=== PATIENT | female | born 1960 | race Caucasian/White ===

== ENCOUNTER 2016-06-09 10:40 | Inpatient (IN) | payer MEDICAID, OTHER ==
[~2016-06-09] VITALS: Ht 154.9 cm; Wt 80.8 kg
[2016-06-09 13:30] VITALS: BP_SYST 111; BP_SYST 164; BP_DIAS 61; BP_DIAS 95
[2016-06-09] MEDS ORDERED: IPRATROPIUM 0.5MG/ALBUTEROL 2.5MG INH SOL UD 3ML (DUONEB)(J7620) NEB PRN (14:00)
[2016-06-09] MEDS ORDERED: MOM 30ML SUSPENSION UDC PO PRN (14:00)
[2016-06-09] MEDS ORDERED: ALBUTEROL 90 MCG/ACT 8GM HFA INHALER INH PRN (14:00)
[2016-06-09] MEDS ORDERED: IPRASOL4 INH (14:36)
[2016-06-09] MEDS ORDERED: BACI500O8 TOP (14:36)
[2016-06-09] MEDS ORDERED: CART120C PO (14:36)
[2016-06-09] MEDS ORDERED: ADV250INH INH (14:36)
[2016-06-09] MEDS ORDERED: NYST100024 TOP (14:36)
[2016-06-09] MEDS ORDERED: ASPI81TA85 PO (14:36)
[2016-06-09] MEDS ORDERED: BUPR300T34 PO (14:36)
[2016-06-09] MEDS ORDERED: ALBU17IN2 INH (14:39)
[2016-06-09] MEDS ORDERED: LISI40TAB PO (14:39)
[2016-06-09] MEDS ORDERED: CRES40TA PO (14:39)
[2016-06-09] MEDS ORDERED: TRAZ150T14 PO (14:39)
[2016-06-09] MEDS ORDERED: LORA10TA2 PO (14:39)
[2016-06-09] MEDS ORDERED: OMEP20CA3 PO (14:39)
[2016-06-09] MEDS ORDERED: METO100T PO (14:39)
[2016-06-09] MEDS ORDERED: TYLE650T35 PO (14:45)
[2016-06-09] MEDS: LORATADINE 10 MG TAB PO SCH (15:34)
[2016-06-09] MEDS: ROSUVASTATIN 10 MG TAB (CRESTOR) PO SCH (15:34)
[2016-06-09] MEDS: OMEPRAZOLE 20 MG CAP PO SCH (15:34)
[2016-06-09] MEDS: BACITRACIN OINT 30GM TOP SCH ×2 (15:34→20:11)
[2016-06-09] MEDS: buPROPion **XL** TABLET 150MG (WELLBUTRIN XL) PO SCH (15:35)
[2016-06-09] MEDS: ASPIRIN 81 MG ENTERIC TAB PO SCH (15:35)
--- NOTE | 2016-06-09 17:13 | PMRNOTEPD ---
PMR Note H&P has been dictated today 06/09/16 TAL CROFT MD Jun 09, 2016 17:13
--- NOTE | 2016-06-09 18:31 | PMRHPE ---
DATE OF ADMISSION: 06/09/2016 CHIEF COMPLAINT: Rehabilitation of right occipitoparietal intracerebral hemorrhage/cerebrovascular accident, status post craniotomy and evacuation. Patient with left hemiparesis and some decreased judgment spatial concept regarding left base. HISTORY OF PRESENT ILLNESS: The patient is a 55-year-old white female, who recently had a viral pneumonia and was in the hospital at [facility] and then two days after discharge on 05/25/2016 fell and had decreasing level of consciousness and motor control. She was taken back to [facility], evaluated and found to have a near cerebral hemorrhage partially related to her anticoagulation therapy for atrial fibrillation with rapid ventricular response by treatment with aspirin and Xarelto. The patient was transferred to [facility] for neurosurgery and had craniotomy and evacuation of the clot. The surgery occurred on 05/25/2016. The patient was placed on mechanical ventilation and had a difficult course. However, the patient then started to progress and was weaned off the ventilator and transferred to the acute floor and Physical Medicine and Rehabilitation (PM R), physical therapy (PT), occupational therapy (OT), and speech therapy evaluations were performed. The patient initially was slow progress, but in the last three days has been showing fair recovery in participation and making gains and was felt to be a good rehabilitation candidate and waiting to do her rehabilitation closer to home and was accepted for admission to the acute rehabilitation unit here at [facility] for neuro rehabilitation. PAST MEDICAL HISTORY: 1. Atrial fibrillation with history of rapid ventricular response. 2. Chronic obstructive pulmonary disease (COPD) with history of emphysema. 3. Depression and history of posttraumatic stress disorder (PTSD). 4. Hypertension. 5. Pneumonia. 6. Atherosclerotic cardiovascular disease. PAST SURGICAL HISTORY: 1. Craniotomy on 05/25/2016. 2. Prior heart stent. FAMILY HISTORY: No pertinent family history has been obtained. SOCIAL HISTORY: The patient is . She lives with her and one of her adult children. She has been smoking cigarettes up until the time of the intracerebral hemorrhage but has been on nicotine patch and discontinued from her one pack a day smoking history. The patient has no history of illicit drug abuse. No travel or exposure to contagious disease. REVIEW OF SYSTEMS: CONSTITUTIONAL: Negative. CARDIOVASCULAR: Negative. GASTROINTESTINAL: Negative. RESPIRATORY: Positive for postnasal drip, coughing, and some sputum production, along with periods of shortness of breath and wheezing. NEUROLOGIC: Positive for weakness, otherwise negative. GENITOURINARY: Negative except for stress incontinence. INTEGUMENT: Negative. MEDICATIONS ON ADMISSION: - Proventil inhaler two puffs every 6 hours - DuoNeb 3 mL every 4 hours as needed for shortness of breath and wheezing - aspirin enteric coated 81 mg daily - bacitracin ointment topically three times a day to scalp incision and staple area - Wellbutrin XL 300 mg in the morning - Cardizem CD 120 mg at night - Colace 100 mg twice a day - lisinopril 40 mg at night - Claritin 10 mg by mouth daily - metoprolol tartrate 100 mg by mouth twice a day - milk of magnesia 30 mL by mouth daily as needed for constipation - nystatin powder to skin folds as needed for fungal - omeprazole 20 mg by mouth daily - Crestor 40 mg by mouth daily - salmeterol/fluticasone 250/50 one puff inhaled twice a day - Senokot one tablet at night - trazodone 300 mg at night The patient is on oxygen to keep oxygen saturation greater than or equal to 92%. She is also on seizure precautions secondary to cerebral hemorrhage and thromboembolic compression stockings (TEDS) for leg protection from deep vein thrombosis (DVT). ALLERGIES: The patient is allergic to LEVAQUIN, which causes rash and also some renal dysfunction that the patient was nonspecific about. DIETARY: The patient with dysphagia is on thickened liquids of nectar thickness and pureed foods with supervision for meals. She will be assessed for swallowing with speech therapy tomorrow. PHYSICAL EXAMINATION: The patient is a very short, obese, middle aged, white female who looks older than stated age of 55. She is alert and oriented to person, place, time and to general situation. Speech is clear, coherent and appropriate. The patient is pleasant, cooperative with positive affect and outlook. Memory is fair. VITAL SIGNS: Temperature 98.1, blood pressure 111/61, pulse 79, respirations 18, pulse oximetry 99% on 2 liters of oxygen via nasal cannula. HEENT: Normocephalic, atraumatic. Pupils are equal, round, reactive to light and accommodation. Extraocular motions are intact. Vision os conjugate. The patient appropriately tracks and responds to people around the room. Oropharynx shows some possible early thrush, but tongue is midline. There is no tremor noted. Hearing is good. NECK: Supple with some tender points. LUNGS: Clear in all spencer to auscultation. CORONARY: Shows regular rate and rhythm with normal S1, S2. 2 out of 4 radial pulses. HEAD: The patient has a C-shaped craniotomy incision that is stapled and sealed without drainage and no puffiness around it on the right occipitoparietal region. ABDOMEN: Obese. Bowel sounds present in all quadrants. No palpable tenderness or masses. BACK: Notable tender points down to the lumbosacral junction but no trigger points. EXTREMITIES: Good to full functional range of motion with some mild weakness of the left upper and lower extremities, but no clear ataxia found. Sensorium appears to be slightly decreased in the extremities of the feet and fingertips, but overall light touch and vibration are intact and deep tendon reflexes show 2/4 at the biceps, triceps, brachioradialis and knee jerks. Balance is fair to good sitting. The patient has a tendency to move to the front of the chair and lean forward and is reported by family to have already slipped out of the chair some time today. ASSESSMENT/PLAN: DIAGNOSES: 1. Rehabilitation of intracerebral hemorrhage with intraparenchymal bleeding in the right posterior parietal region. The patient seems to be making progress in the last couple of days, as it appears that vascularization and self repair have been improving after the decompression two weeks ago. The patient has participated well in limited therapy down at [facility] and is motivated to and willing to participate in acute intensive therapy with the goal of increasing her overall strength, endurance and functions to allow her to return home with her family and be modified to independent in activities of daily living and mobility. The patient will require physical and occupational therapy for activities of daily living and mobility, as well as evaluation of perception. Also, speech therapy to evaluate cognition, memory, and swallowing and advance diet as appropriate to the patient's skills. 2. Atrial fibrillation. In light of the bleed, will have to remain with just enteric coated aspirin for anticoagulation. We will use NILSON hose to avoid deep vein thrombosis (DVT), but the Cardizem, Lisinopril and Lopressor should manage blood pressure and heart rate and hopefully keep the patient out of atrial fibrillation. 3. Gastroesophageal reflux disease (GERD). The patient will continue on omeprazole. 4. Depression. We will continue bupropion and consider psychiatric evaluation if needed. 5. Hyperlipidemia. We will continue Crestor. POST ADMISSION PHYSICIAN EVALUATION: The patient with a very significant intracerebral hemorrhage exacerbated by her management medications for atrial fibrillation is now showing significant recovery and often intracerebral hemorrhages tend to have better outcomes versus thromboembolic types of strokes. The patient is consistent with her preadmission screening. I do feel that she has the overall medical stability and endurance to participate in 3 hours of therapy per day and I do anticipate discharge to home with home care services in approximately 12 days. I feel her prognosis is good. Her estimated length of stay is approximately 12 days. Time spent on chart review, history and physical and documentation is greater than 70 minutes.
[2016-06-09] MEDS: ADVAIR DISKUS 250/50 INH PWD INH SCH (19:57)
[2016-06-09 20:00] VITALS: BP 132/67
[2016-06-09] MEDS: DOCUSATE SODIUM 100 MG CAP PO SCH (20:10)
[2016-06-09] MEDS: METOPROLOL TARTRATE 100 MG TAB PO SCH (20:10)
[2016-06-09] MEDS: traZODone 100 MG TAB PO SCH (20:10)
[2016-06-09] MEDS: SENNA 8.6 MG TAB (SENOKOT) PO SCH (20:10)
[2016-06-09] MEDS: LISINOPRIL 40 MG TAB PO SCH (20:10)
[2016-06-09] MEDS: NYSTATIN 100,000 UNITS/GM TOPICAL PWD 15 GM TOP SCH (20:11)
[2016-06-10 06:00] VITALS: BP 147/68
[2016-06-10 07:01] LABS: BASO % 0.3 % (0.0-1.0); EOS # 0.2 K/mm3 (0.0-0.50); EOS % 2.2 % (0.0-3.0); LARGE UNSTAINED CELL # 0.2 K/mm3 (0.0-0.4); LARGE UNSTAINED CELL % 2.4 % (0.0-4.0); LYMPH # 1.7 K/mm3 (1.5-4.5); LYMPH % 18.7 % (24.0-44.0); MEAN CORPUSCULAR HGB CONC 30.7 g/dl (32.0-36.5); MEAN CORPUSCULAR VOLUME 84.8 fl (80.0-96.0); MONO # 0.5 K/mm3 (0.0-0.8); MONO % 5.8 % (0.0-5.0); NEUTROPHILS # 5.6 K/mm3 (1.8-7.7); NEUTROPHILS % 70.6 % (36.0-66.0); PLATELET COUNT, AUTOMATED 371 k/mm3 (150-450); RED CELL DISTRIBUTION WIDTH 14.6 % (11.5-14.5); WHITE BLOOD COUNT 7.9 K/mm3 (4.0-10.0)
[2016-06-10 07:23] LABS: ALBUMIN 2.9 GM/DL (3.2-5.2); ALBUMIN/GLOBULIN RATIO 0.88 (1.00-1.93); ALKALINE PHOSPHATASE 120 U/L (45-117); ALT/SGPT 49 U/L (12-78); ANION GAP 7 MEQ/L (8-16); AST/SGOT 25 U/L (15-37); BILIRUBIN,TOTAL 0.4 MG/DL (0.2-1.0); BLOOD UREA NITROGEN 13 MG/DL (7-18); CALCIUM LEVEL 9.2 MG/DL (8.5-10.1); CARBON DIOXIDE LEVEL 34 MEQ/L (21-32); CHLORIDE LEVEL 101 MEQ/L (98-107); CREATININE FOR GFR 0.87 MG/DL (0.55-1.02); GLOMERULAR FILTRATION RATE > 60.0 (>51); GLUCOSE, FASTING 116 MG/DL (70-105); POTASSIUM SERUM 4.3 MEQ/L (3.5-5.1); SODIUM LEVEL 142 MEQ/L (136-145); TOTAL PROTEIN 6.2 GM/DL (6.4-8.2)
[2016-06-10] MEDS: ADVAIR DISKUS 250/50 INH PWD INH SCH ×2 (08:33→20:58)
[2016-06-10] MEDS: DOCUSATE SODIUM 100 MG CAP PO SCH ×2 (09:43→21:00)
[2016-06-10] MEDS: ASPIRIN 81 MG ENTERIC TAB PO SCH (09:43)
[2016-06-10] MEDS: buPROPion **XL** TABLET 150MG (WELLBUTRIN XL) PO SCH (09:43)
[2016-06-10] MEDS: METOPROLOL TARTRATE 100 MG TAB PO SCH ×2 (09:47→21:31)
[2016-06-10] MEDS: OMEPRAZOLE 20 MG CAP PO SCH (09:47)
[2016-06-10] MEDS: LORATADINE 10 MG TAB PO SCH (09:47)
[2016-06-10] MEDS: NYSTATIN 100,000 UNITS/GM TOPICAL PWD 15 GM TOP SCH ×2 (09:48→21:33)
[2016-06-10] MEDS: BACITRACIN OINT 30GM TOP SCH ×3 (09:49→21:33)
[2016-06-10] MEDS: ROSUVASTATIN 10 MG TAB (CRESTOR) PO SCH (11:34)
--- NOTE | 2016-06-10 12:05 | IPNPDOC ---
Appeals Specialist Progress Note DATE OF SERVICE: 06/10/2016 DATE OF ADMISSION: Jun 09, 2016 at 12:50 INPATIENT REHABILITATION ADMISSION DAY: #1 SUBJECTIVE: Patient is a 55-year-old white female with right occipital parietal ICH. Patient reports no significant pain no fever chills or other malaise. She is happy that speech has evaluated her and is lifting the thicken liquids restriction. ALLERGIES: See Below MEDICATIONS: Reviewed, see below. OBJECTIVE: VITAL SIGNS: Please see below. PHYSICAL EXAMINATION: GENERAL: Short obese middle-age white female who is alert and oriented 4, but somewhat impulsive and requiring bed and chair alarm so that she does not it up on her own. She is in no acute distress and is in good spirits. HEENT: C-shaped right occipital parietal incision stapled shut from the craniotomy is showing no drainage no erythema or other signs of inflammation. Speech is clear with no dysarthria. CARDIOVASCULAR: Regular rate and rhythm with normal S1 and S2 and 2 out 4 radial pulses. LUNGS: All spencer are clear to auscultation. ABDOMEN: Obese, benign, nontender, with normal bowel sounds in all quadrants. NEUROLOGICAL: As above with continued weakness and motor control Roblin's for both lower extremities and left upper extremity. SKIN: Grossly intact with healing of the craniotomy incision going well. LABORATORY DATA: Reviewed. Please see below. MICROBIOLOGY: Please see below. IMAGING: No new. DVT prophylaxis ordered?: None due to ICH except for 81 mg aspirin and NILSON hose. ASSESSMENT AND PLAN: 1. Rehabilitation of right occipital parietal intercerebral hemorrhage: Patient continuing to show progress with improved speech and swallowing now upgrading to thin liquids. Patient participating well also in physical and occupational therapy and baseline levels function are being established. 2. COPD with emphysema: Patient remained well oxygenated in spite of often misplacing her nasal cannula. Lungs moving air well on exam. 3. Psych: Mood is good no problems with depression or PTSD at this time, patient is a willing participant in therapies and seems very motivated to improve for return to home. TIME SPENT: Chart Review, examination and documentation greater than 25 minutes. Allergies Coded Allergies: Levofloxacin (Verified Allergy, Unknown, Rash, Swelling, Renal, 06/09/16) Vital Signs Vital Signs Date Time Temp Pulse Resp B/P Pulse Ox O2 Delivery O2 Flow Rate FiO2 06/10/16 09:47 72 134/86 06/10/16 06:00 97.2 18 95 Nasal Cannula 2.0 Laboratory Data CBC/BMP Laboratory Tests 06/10/16 06:39 Calcium Level 9.2, Aspartate Amino Transf (AST/SGOT) 25, Alanine Aminotransferase (ALT/SGPT) 49, Alkaline Phosphatase 120 H, Total Bilirubin 0.4 , Total Protein 6.2 L, Albumin 2.9 L, Red Blood Count 4.16, Mean Corpuscular Volume 84.8, Mean Corpuscular Hemoglobin 26.0 L, Mean Corpuscular Hemoglobin Concent 30.7 L, Red Cell Distribution Width 14.6 H, Neutrophils (%) (Auto) 70.6 H, Lymphocytes (%) (Auto) 18.7 L, Monocytes (%) (Auto) 5.8 H, Eosinophils (%) ( Auto) 2.2, Basophils (%) (Auto) 0.3, Neutrophils # (Auto) 5.6, Lymphocytes # ( Auto) 1.7, Monocytes # (Auto) 0.5, Eosinophils # (Auto) 0.2, Basophils # (Auto) 0.0 Labs 24H Laboratory Tests 2 06/10/16 06:39: Blood Urea Nitrogen 13, Creatinine 0.87, Sodium Level 142, Potassium Level 4.3, Chloride Level 101, Carbon Dioxide Level 34H, Calcium Level 9.2, Aspartate Amino Transf (AST/SGOT) 25, Alanine Aminotransferase (ALT/SGPT) 49, Alkaline Phosphatase 120H, Total Bilirubin 0.4, Total Protein 6.2L, Albumin 2.9L, Albumin /Globulin Ratio 0.88L, Anion Gap 7L, White Blood Count 7.9, Red Blood Count 4.16 , Hemoglobin 10.8L, Hematocrit 35.3L, Mean Corpuscular Volume 84.8, Mean Corpuscular Hemoglobin 26.0L, Mean Corpuscular Hemoglobin Concent 30.7L, Red Cell Distribution Width 14.6H, Platelet Count 371, Neutrophils (%) (Auto) 70.6H , Lymphocytes (%) (Auto) 18.7L, Monocytes (%) (Auto) 5.8H, Eosinophils (%) (Auto ) 2.2, Basophils (%) (Auto) 0.3, Neutrophils # (Auto) 5.6, Lymphocytes # (Auto) 1.7, Monocytes # (Auto) 0.5, Eosinophils # (Auto) 0.2, Basophils # (Auto) 0.0, Glomerular Filtration Rate > 60.0, Large Unclassified Cells # 0.2, Large Unclassified Cells % 2.4 Current Medications Current Medications Current Medications Albuterol Sulfate (Proventil, Ventolin Hfa) 2 puff Q6HP PRN INH SHORTNESS OF BREATH; Start 06/09/16 at 14:00; Stop 07/09/16 at 13:59 Albuterol/ Ipratropium (Duoneb (Ipr 0.5mg/Alb 2.5mg)) 3 ml Q4HP PRN NEB SOB/ WHEEZING; Start 06/09/16 at 14:00; Stop 07/09/16 at 13:59 Aspirin (Ecotrin) 81 mg DAILY PO Last administered on 06/10/16 09:43; Start at 09:00; Stop 07/09/16 at 08:59 Bacitracin (Bacitracin Oint) Topically to craniot... TID TOP Last administered on 06/10/16 09:49; Start 06/09/16 at 16:00; Stop 07/09/16 at 15:59 Bupropion HCl (Wellbutrin Xl) 300 mg QAM PO Last administered on 06/10/16 09: 43; Start 06/09/16 at 09:00; Stop 07/09/16 at 08:59 Diltiazem HCl (Cardizem Cd) 120 mg QHS PO Last administered on 06/09/16 20:10 ; Start 06/09/16 at 21:00; Stop 07/09/16 at 20:59 Docusate Sodium (Colace) 100 mg BID PO Last administered on 06/10/16 09:43; Start 06/09/16 at 21:00; Stop 07/09/16 at 20:59 Home Med (Med Rec Complete!) ASDIRECTED XX ; Start 06/09/16 at 15:00; Stop at 15:00; Status DC Lisinopril (Prinivil) 40 mg QPM PO Last administered on 06/09/16 20:10; Start 06/09/16 at 21:00; Stop 07/09/16 at 20:59 Loratadine (Claritin) 10 mg DAILY PO Last administered on 06/10/16 09:47; Start 06/09/16 at 09:00; Stop 07/09/16 at 08:59 Magnesium Hydroxide (Milk Of Magnesia) 30 ml DAILYPRN PRN PO CONSTIPATION; Start 06/09/16 at 14:00; Stop 07/09/16 at 13:59 Metoprolol Tartrate (Lopressor) 100 mg BID PO Last administered on 06/10/16 09 :47; Start 06/09/16 at 21:00; Stop 07/09/16 at 20:59 Nystatin (Mycostatin Powder, Nystop) Skin folds BID TOP Last administered on 09:48; Start 06/09/16 at 21:00; Stop 07/09/16 at 20:59 Omeprazole (PriLOSEC) 20 mg DAILY PO Last administered on 06/10/16 09:47; Start 06/09/16 at 09:00; Stop 07/09/16 at 08:59 Rosuvastatin Calcium (Crestor) 40 mg DAILY PO Last administered on 06/10/16 11 :34; Start 06/09/16 at 09:00; Stop 07/09/16 at 08:59 Salmeterol Xinafoate/ Fluticasone (Advair Diskus 250/50) 1 puff BID INH Last administered on 06/10/16 08:33; Start 06/09/16 at 21:00; Stop 07/09/16 at 20:59 Senna (Senokot) 1 tab QHS PO Last administered on 06/09/16 20:10; Start at 21:00; Stop 07/09/16 at 20:59 Trazodone HCl (Desyrel) 300 mg QHS PO Last administered on 06/09/16 20:10; Start 06/09/16 at 21:00; Stop 07/09/16 at 20:59 TAL CROFT MD Jun 10, 2016 12:05
--- NOTE | 2016-06-10 13:21 | HPEPDOC ---
Medical History and Physical Date of Admission Jun 09, 2016 at 12:50 History and Physical DATE OF Consultation: 06/11/15 ATTENDING: Dr. Leggett PCP: Dr Gamez CC: Intracerebral hemorrhage s/p craniotomy and evacuation 05/25/16 [facility] HPI: 55yoF with a past medical history significant for Atrial Fibrillation previously on ASA and Xarelto. The pt had been treated for viral Pneumonia and was hospitalized at [facility] and was discharged 05/23/16. On 05/25/16 she had a fall with decreasing LOC and motor control. She was found to have a cerebral hemorrhage and was transferred to [facility] Neurosurgery service. Craniotomy and evacuation of clot completed 05/25/16. Pt with residual Left sided weakness, dysphagia. Denies any fevers, chills, weakness, fatigue, CHAIREZ, CP, SOB, cough, palpitations, abdominal pain, N/V/D or changes in bowel or bladder habits. Upon presentation to the hospital the hospitalist team was consulted to assist with medical management. PMHx: PAF. Previously on Xarelto anticoagulation. CAD. Previously on ASA. H/O Pneumonia. 06/06. COPD depression PTSD HTN TTE [facility] 06/06 Nml EF 60-65%. PSHX: Craniotomy 05/25/16 [facility] cardiac Stent SOCHX: Resides in: lives with and one of adult children Marital Status: Kids: 4 Tobacco use: previously 1ppd ETOH: denies Illicit Drugs: Denies Recent travel: denies FAMHX: Mother: PE Father: CAD/CHF Siblings: 8 Alive, CAD/HTN. Children: 4 Alive, well ROS: As noted in HPI, otherwise 11pt ROS of systems reviewed and remarkable. PE: GEN: 55yoF, appears older than stated age. Well-nourished, well developed. No acute distress. Alert and oriented x 3. Pleasant, interactive. HEENT: Normocephalic, Craniotomy incision noted/healing. Pupils are equal, round , and reactive to light. Extraocular movements are intact. No nystagmus appreciated. Sclera are nonicteric. Conjunctiva without injection. Nose midline. Nasal turbinates without bogginess. EACs both patent BL. TMs both visualized and pizano with good cone of light, no bulging or erythema. No facial asymmetry. Moist mucous membranes. Dentition fair. Pharynx pink and moist, no cobblestoning. Neck supple, trachea midline. No lymphadenopathy or thyromegaly appreciated. CHEST: Regular rate and rhythm, +S1, +S2 LUNGS: Clear to auscultation bilaterally. No wheezes, rales, or rhonchi. Breathing appears symmetric and easy. Patient is speaking in full sentences. No accessory muscle use. ABD: Round, soft, non-tender, non-distended. +Bowel sounds throughout. No rebound or guarding. No costovertebral angle tenderness. EXT: Pulses 2+ bilaterally dorsalis pedis and radial. No lower extremity edema appreciated. SKIN: [place], dry, warm. Capillary refill <2sec. No rashes. NEURO: Alert and oriented x 3. Cranial nerves III-XII are intact. weakness noted LUE/LLE. EKG: pending. A&P: 55yoF with a past medical history significant for Atrial Fibrillation previously on ASA and Xarelto. The pt had been treated for viral Pneumonia and was hospitalized at [facility] and was discharged 05/23/16. On 05/25/16 she had a fall with decreasing LOC and motor control. She was found to have a cerebral hemorrhage and was transferred to [facility] Neurosurgery service. Craniotomy and evacuation of clot completed 05/25/16 The patient is admitted to ARU to Dr. Leggett's service. 1. ICH S/P Craniotomy and evacuation of clot 05/25/16. Rehab as per ARU. PT/OT. ST. Outpt F/U with Neurology/Neurosurgery. Will confirm what instructions are from [facility]. Plan for F/U MRI as outpt 4 weeks as per D/C instructions. Continue with Keppra Seizure prophylaxis as per [facility] Neurology. 2. PAF. Xarelto on Hold. ASA 81mg resumed as per Neurosugery at [facility]. Follows with Cardiology in [place] as outpt. Will update EKG. Metoprolol/ Cardizem for rate control. HR 70s. 3. GERD. PPI 4. Depression. Wellbutrin. 5. HLD. Statin. 6. COPD. Albuterol/Advair. 7. CAD. Metoprolol/ASA. 8. HTN. Lisinopril. 9. Allergic rhinitis. Claritin. DVT prophylaxis. SCD/TEDS Vital Signs Vital Signs Date Time Temp Pulse Resp B/P Pulse Ox O2 Delivery O2 Flow Rate FiO2 06/10/16 09:47 72 134/86 06/10/16 09:30 Nasal Cannula 2.0 06/10/16 06:00 97.2 18 95 Laboratory Data Labs 24H Laboratory Tests 2 06/10/16 06:39: Blood Urea Nitrogen 13, Creatinine 0.87, Sodium Level 142, Potassium Level 4.3, Chloride Level 101, Carbon Dioxide Level 34H, Calcium Level 9.2, Aspartate Amino Transf (AST/SGOT) 25, Alanine Aminotransferase (ALT/SGPT) 49, Alkaline Phosphatase 120H, Total Bilirubin 0.4, Total Protein 6.2L, Albumin 2.9L, Albumin /Globulin Ratio 0.88L, Anion Gap 7L, White Blood Count 7.9, Red Blood Count 4.16 , Hemoglobin 10.8L, Hematocrit 35.3L, Mean Corpuscular Volume 84.8, Mean Corpuscular Hemoglobin 26.0L, Mean Corpuscular Hemoglobin Concent 30.7L, Red Cell Distribution Width 14.6H, Platelet Count 371, Neutrophils (%) (Auto) 70.6H , Lymphocytes (%) (Auto) 18.7L, Monocytes (%) (Auto) 5.8H, Eosinophils (%) (Auto ) 2.2, Basophils (%) (Auto) 0.3, Neutrophils # (Auto) 5.6, Lymphocytes # (Auto) 1.7, Monocytes # (Auto) 0.5, Eosinophils # (Auto) 0.2, Basophils # (Auto) 0.0, Glomerular Filtration Rate > 60.0, Large Unclassified Cells # 0.2, Large Unclassified Cells % 2.4 CBC/BMP Laboratory Tests 06/10/16 06:39 Calcium Level 9.2, Aspartate Amino Transf (AST/SGOT) 25, Alanine Aminotransferase (ALT/SGPT) 49, Alkaline Phosphatase 120 H, Total Bilirubin 0.4 , Total Protein 6.2 L, Albumin 2.9 L, Red Blood Count 4.16, Mean Corpuscular Volume 84.8, Mean Corpuscular Hemoglobin 26.0 L, Mean Corpuscular Hemoglobin Concent 30.7 L, Red Cell Distribution Width 14.6 H, Neutrophils (%) (Auto) 70.6 H, Lymphocytes (%) (Auto) 18.7 L, Monocytes (%) (Auto) 5.8 H, Eosinophils (%) ( Auto) 2.2, Basophils (%) (Auto) 0.3, Neutrophils # (Auto) 5.6, Lymphocytes # ( Auto) 1.7, Monocytes # (Auto) 0.5, Eosinophils # (Auto) 0.2, Basophils # (Auto) 0.0 Home Medications Scheduled Aspirin (Aspir-81) 81 Mg Tab 81 MG PO DAILY Bacitracin Base (Bacitracin) 500 Unit/Gm Oin 1 DOSE TOP TID APPLY TO WOUND ON HEAD Bupropion HCl (Bupropion HCl Xl) 300 Mg Tab 300 MG PO DAILY Diltiazem HCl (Cartia Xt) 120 Mg Cap 120 MG PO QPM Lisinopril (Lisinopril) 40 Mg Tab 40 MG PO QHS Loratadine (Loratadine) 10 Mg Tab 10 MG PO DAILY Metoprolol Tartrate (Metoprolol Tartrate) 100 Mg Tab 100 MG PO BID Nystatin (Nystatin Powder) 100,000 Unit/Gm Pow 1 DOSE TOP TID APPLY UNDER BREASTS AND GROIN FOLDS Omeprazole (Omeprazole) 20 Mg Cap 20 MG PO DAILY Rosuvastatin Calcium (Crestor) 40 Mg Tab 40 MG PO DAILY Salmeterol/Fluticasone (Advair Diskus 250-50 Mcg/Dose) 14 Puff/Inhaler Aerp 1 PUFF INH BID Trazodone HCl (Trazodone HCl) 150 Mg Tab 300 MG PO QHS Scheduled PRN Acetaminophen (Tylenol 8 Hour Arthritis) 650 Mg Tab 650 MG PO Q8H PRN PRN PAIN Albuterol Sulfate (Proventil Hfa) 167 Puff/6.7 Gm Aers 2 PUFFS INH Q6H PRN PRN SHORTNESS OF BREATH Albuterol/Ipratropium (Ipratropium [place]/Albut 0.5-2.5 (3) mg/3Ml) 1 Adriel Adriel 1 ADRIEL INH Q4H PRN PRN SHORTNESS OF BREATH Allergies Coded Allergies: Levofloxacin (Verified Allergy, Unknown, Rash, Swelling, Renal, 06/09/16) Katie Leija Jun 10, 2016 13:21
[2016-06-10] MEDS ORDERED: levETIRAcetam 250MG TABLET (KEPPRA) PO ONE (14:00)
[2016-06-10 14:10] VITALS: BP 132/82
--- NOTE | 2016-06-10 17:21 | ECGEPIP ---
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
[2016-06-10] MEDS: SENNA 8.6 MG TAB (SENOKOT) PO SCH (21:00)
[2016-06-10] MEDS: levETIRAcetam 250MG TABLET (KEPPRA) PO SCH (21:29)
[2016-06-10] MEDS: traZODone 100 MG TAB PO SCH (21:30)
[2016-06-10] MEDS: LISINOPRIL 40 MG TAB PO SCH (21:31)
[2016-06-10 22:00] VITALS: BP 148/72
[2016-06-11 06:00] VITALS: BP 127/90
[2016-06-11] MEDS: ADVAIR DISKUS 250/50 INH PWD INH SCH ×2 (07:56→20:56)
[2016-06-11] MEDS: LORATADINE 10 MG TAB PO SCH (08:58)
[2016-06-11] MEDS: OMEPRAZOLE 20 MG CAP PO SCH (08:58)
[2016-06-11] MEDS: DOCUSATE SODIUM 100 MG CAP PO SCH ×2 (08:59→21:00)
[2016-06-11] MEDS: ASPIRIN 81 MG ENTERIC TAB PO SCH (08:59)
[2016-06-11] MEDS: buPROPion **XL** TABLET 150MG (WELLBUTRIN XL) PO SCH (08:59)
[2016-06-11] MEDS: METOPROLOL TARTRATE 100 MG TAB PO SCH ×2 (08:59→21:18)
[2016-06-11] MEDS: ROSUVASTATIN 10 MG TAB (CRESTOR) PO SCH (08:59)
[2016-06-11] MEDS: NYSTATIN 100,000 UNITS/GM TOPICAL PWD 15 GM TOP SCH ×2 (09:01→21:20)
[2016-06-11] MEDS: BACITRACIN OINT 30GM TOP SCH ×3 (09:02→21:19)
[2016-06-11] MEDS: levETIRAcetam 250MG TABLET (KEPPRA) PO SCH ×2 (09:42→21:18)
[2016-06-11 14:00] VITALS: BP 130/84
[2016-06-11 20:00] VITALS: BP 144/55
[2016-06-11] MEDS: SENNA 8.6 MG TAB (SENOKOT) PO SCH (21:00)
[2016-06-11] MEDS: LISINOPRIL 40 MG TAB PO SCH (21:18)
[2016-06-11] MEDS: traZODone 100 MG TAB PO SCH (21:23)
[2016-06-12 06:00] VITALS: BP 140/77
[2016-06-12] MEDS: ADVAIR DISKUS 250/50 INH PWD INH SCH ×2 (07:46→19:55)
[2016-06-12] MEDS: buPROPion **XL** TABLET 150MG (WELLBUTRIN XL) PO SCH (09:13)
[2016-06-12] MEDS: OMEPRAZOLE 20 MG CAP PO SCH (09:13)
[2016-06-12] MEDS: ASPIRIN 81 MG ENTERIC TAB PO SCH (09:13)
[2016-06-12] MEDS: METOPROLOL TARTRATE 100 MG TAB PO SCH ×2 (09:13→21:43)
[2016-06-12] MEDS: ROSUVASTATIN 10 MG TAB (CRESTOR) PO SCH (09:14)
[2016-06-12] MEDS: LORATADINE 10 MG TAB PO SCH (09:14)
[2016-06-12] MEDS: levETIRAcetam 250MG TABLET (KEPPRA) PO SCH ×2 (09:14→21:42)
[2016-06-12] MEDS: DOCUSATE SODIUM 100 MG CAP PO SCH ×2 (09:14→21:00)
[2016-06-12] MEDS: NYSTATIN 100,000 UNITS/GM TOPICAL PWD 15 GM TOP SCH ×2 (09:15→21:44)
[2016-06-12] MEDS: BACITRACIN OINT 30GM TOP SCH ×3 (09:15→21:44)
[2016-06-12 14:00] VITALS: BP 106/71
[2016-06-12 20:00] VITALS: BP 118/55
[2016-06-12] MEDS: SENNA 8.6 MG TAB (SENOKOT) PO SCH (21:00)
[2016-06-12] MEDS: LISINOPRIL 40 MG TAB PO SCH (21:43)
[2016-06-12] MEDS: traZODone 100 MG TAB PO SCH (21:43)
[2016-06-13 06:00] VITALS: BP 123/60
[2016-06-13] MEDS: ADVAIR DISKUS 250/50 INH PWD INH SCH ×2 (08:08→21:41)
[2016-06-13] MEDS: LORATADINE 10 MG TAB PO SCH (08:52)
[2016-06-13] MEDS: DOCUSATE SODIUM 100 MG CAP PO SCH ×2 (08:52→21:00)
[2016-06-13] MEDS: ROSUVASTATIN 10 MG TAB (CRESTOR) PO SCH (08:53)
[2016-06-13] MEDS: METOPROLOL TARTRATE 100 MG TAB PO SCH ×2 (08:54→20:07)
[2016-06-13] MEDS: ASPIRIN 81 MG ENTERIC TAB PO SCH (08:54)
[2016-06-13] MEDS: levETIRAcetam 250MG TABLET (KEPPRA) PO SCH ×2 (08:54→20:07)
[2016-06-13] MEDS: OMEPRAZOLE 20 MG CAP PO SCH (08:55)
[2016-06-13] MEDS: buPROPion **XL** TABLET 150MG (WELLBUTRIN XL) PO SCH (08:55)
[2016-06-13] MEDS: NYSTATIN 100,000 UNITS/GM TOPICAL PWD 15 GM TOP SCH ×2 (08:56→20:08)
[2016-06-13] MEDS: BACITRACIN OINT 30GM TOP SCH ×3 (08:56→20:08)
--- NOTE | 2016-06-13 10:20 | IPNPDOC ---
Subjective Date Seen The patient was seen on 06/13/16. Subjective Chief Complaint/HPI The patient is a 55-year-old female admitted with a reason for visit of Right Intraparenchymal Hemorrhage. Events since last encounter no new complaints. Objective Physical Examination General Exam: Positive: Alert Eye Exam: Positive: PERRLA Neck Exam: Positive: Supple Chest Exam: Positive: Clear to auscultation, Normal air movement Heart Exam: Positive: Normal S1, Normal S2, Rate Normal, Regular Rhythm, Negative: Murmurs, Rubs Skin Exam: Positive: Nl turgor and temperature Assessment /Plan Problems (1) CVA (cerebrovascular accident due to intracerebral hemorrhage) Status: Acute Problem Text: * Management as per ARU * PT/OT/ST * Patient remains on Keppra 750 mg by mouth twice a day seizure prophylaxis as per [facility] neurology. * Follow-up with neurology and neurosurgery following discharge -[facility]. Plan for follow-up MRI brain in 4 weeks. * Bowel care (2) COPD (chronic obstructive pulmonary disease) Status: Chronic Response to Treatment: Stable Problem Text: * Advair/albuterol as needed (3) Depression Status: Chronic Response to Treatment: Stable Problem Text: * Continue Wellbutrin (4) HTN (hypertension) Status: Chronic Response to Treatment: Stable Problem Text: * Continue lisinopril (5) GERD (gastroesophageal reflux disease) Status: Chronic Response to Treatment: Stable Problem Text: * PPI (6) Hyperlipemia Status: Chronic Response to Treatment: Stable Problem Text: * Continue statin (7) PAF (paroxysmal atrial fibrillation) Status: Chronic Response to Treatment: Stable Problem Text: * Xarelto on hold * Aspirin 81 mg restarted as per neurosurgery [facility] * Metoprolol/Cardizem for rate control * EKG 06/10 sinus rhythm * Monitor (8) CAD (coronary artery disease) Status: Chronic Response to Treatment: Stable Problem Text: * Metoprolol * Aspirin 81 mg (9) Allergic rhinitis Status: Chronic Response to Treatment: Stable Problem Text: * Continue Claritin Plan/VTE VTE Prophylaxis Ordered?: Yes (SCD/TEDS) VTE Exclusion Pharmacological: Hemorrhage (ICH) Disposition As per ARU VS, I&O, 24H, Fishbone Vital Signs/I&O Vital Signs Date Time Temp Pulse Resp B/P Pulse Ox O2 Delivery O2 Flow Rate FiO2 06/13/16 08:54 61 110/46 06/13/16 08:00 Room Air 06/13/16 06:00 99.0 18 96 06/12/16 21:00 2.0 I&O- Last 24 Hours up to 6 AM 06/13/16 06:00 Intake Total 900 ml Output Total 200 ml Balance 700 ml Katie Leija Jun 13, 2016 10:20
--- NOTE | 2016-06-13 10:24 | IPNPDOC ---
Operational Trainer Progress Note DATE OF SERVICE: 06/13/2016 DATE OF ADMISSION: Jun 09, 2016 at 12:50 INPATIENT REHABILITATION ADMISSION DAY: #4 SUBJECTIVE: Patient is a 55-year-old white female with with right occipital parietal bleed status post decompression with craniotomy. Patient reports feeling good and not having problems with fever, chills, pain or sleep. ALLERGIES: See Below MEDICATIONS: Reviewed, see below. OBJECTIVE: VITAL SIGNS: Please see below. PHYSICAL EXAMINATION: GENERAL: Short obese middle-age white female in no acute distress with healing craniotomy C shaped incision of the right occipital parietal region that is without drainage or inflammation or increased tenderness. [place] are holding well. HEENT: Healing craniotomy scar. Good facial symmetry without pain notable dysarthria. CARDIOVASCULAR: Regular rate and rhythm with normal S1 and S2 without S3-S4 murmurs or rubs. 2 out 4 bilateral radial pulses. LUNGS: All spencer are clear to auscultation with good air movement. ABDOMEN: Obese, nontender with normal bowel sounds in all quadrants. NEUROLOGICAL: Patient is alert and well oriented, speech is clear coherent and appropriate affect is less and cooperative. Patient showing less impulsivity during my exam today than on the prior exams. SKIN: As noted above healing craniotomy incision otherwise intact skin. LABORATORY DATA: Reviewed. Please see below. MICROBIOLOGY: Please see below. IMAGING: No new. DVT prophylaxis ordered?: Continue hold anticoagulants other than aspirin due to intercerebral hemorrhage. Will continue with NILSON mock for now. ASSESSMENT AND PLAN: 1. Rehabilitation of right occipital parietal intercerebral hemorrhage: Patient still with some left neglect and weakness but isn't progressing in therapies we' ll discuss further at team conference today. 2. Craniotomy: Healing well no changes in care planed. 3. Hypertension: Patient doing fairly well currently 123/60. 4. Depression: This seems to be under good control with patient's mood being stable and on the positive side and working well with therapy and nursing. TIME SPENT: Chart Review, examination and documentation greater than 25 minutes. Allergies Coded Allergies: Levofloxacin (Verified Allergy, Unknown, Rash, Swelling, Renal, 06/09/16) Vital Signs Vital Signs Date Time Temp Pulse Resp B/P Pulse Ox O2 Delivery O2 Flow Rate FiO2 06/13/16 08:54 61 110/46 06/13/16 08:00 Room Air 06/13/16 06:00 99.0 18 96 06/12/16 21:00 2.0 Current Medications Current Medications Current Medications Albuterol Sulfate (Proventil, Ventolin Hfa) 2 puff Q6HP PRN INH SHORTNESS OF BREATH; Start 06/09/16 at 14:00; Stop 07/09/16 at 13:59 Albuterol/ Ipratropium (Duoneb (Ipr 0.5mg/Alb 2.5mg)) 3 ml Q4HP PRN NEB SOB/ WHEEZING; Start 06/09/16 at 14:00; Stop 07/09/16 at 13:59 Aspirin (Ecotrin) 81 mg DAILY PO Last administered on 06/13/16 08:54; Start at 09:00; Stop 07/09/16 at 08:59 Bacitracin (Bacitracin Oint) Topically to craniot... TID TOP Last administered on 06/13/16 08:56; Start 06/09/16 at 16:00; Stop 07/09/16 at 15:59 Bupropion HCl (Wellbutrin Xl) 300 mg QAM PO Last administered on 06/13/16 08: 55; Start 06/09/16 at 09:00; Stop 07/09/16 at 08:59 Diltiazem HCl (Cardizem Cd) 120 mg QHS PO Last administered on 06/12/16 21:42 ; Start 06/09/16 at 21:00; Stop 07/09/16 at 20:59 Docusate Sodium (Colace) 100 mg BID PO Last administered on 06/11/16 08:59; Start 06/09/16 at 21:00; Stop 07/09/16 at 20:59 Home Med (Med Rec Complete!) ASDIRECTED XX ; Start 06/09/16 at 15:00; Stop at 15:00; Status DC Levetiracetam (Keppra) 750 mg BID PO Last administered on 06/13/16 08:54; Start 06/10/16 at 21:00; Stop 07/10/16 at 20:59 Lisinopril (Prinivil) 40 mg QPM PO Last administered on 06/12/16 21:43; Start 06/09/16 at 21:00; Stop 07/09/16 at 20:59 Loratadine (Claritin) 10 mg DAILY PO Last administered on 06/13/16 08:52; Start 06/09/16 at 09:00; Stop 07/09/16 at 08:59 Magnesium Hydroxide (Milk Of Magnesia) 30 ml DAILYPRN PRN PO CONSTIPATION; Start 06/09/16 at 14:00; Stop 07/09/16 at 13:59 Metoprolol Tartrate (Lopressor) 100 mg BID PO Last administered on 06/12/16 21 :43; Start 06/09/16 at 21:00; Stop 07/09/16 at 20:59 Nystatin (Mycostatin Powder, Nystop) Skin folds BID TOP Last administered on 08:56; Start 06/09/16 at 21:00; Stop 07/09/16 at 20:59 Omeprazole (PriLOSEC) 20 mg DAILY PO Last administered on 06/13/16 08:55; Start 06/09/16 at 09:00; Stop 07/09/16 at 08:59 Rosuvastatin Calcium (Crestor) 40 mg DAILY PO Last administered on 06/13/16 08 :53; Start 06/09/16 at 09:00; Stop 07/09/16 at 08:59 Salmeterol Xinafoate/ Fluticasone (Advair Diskus 250/50) 1 puff BID INH Last administered on 06/13/16 08:08; Start 06/09/16 at 21:00; Stop 07/09/16 at 20:59 Senna (Senokot) 1 tab QHS PO Last administered on 06/10/16 21:00; Start at 21:00; Stop 07/09/16 at 20:59 Trazodone HCl (Desyrel) 300 mg QHS PO Last administered on 06/12/16 21:43; Start 06/09/16 at 21:00; Stop 07/09/16 at 20:59 TAL CROFT MD Jun 13, 2016 10:24
[2016-06-13 14:21] VITALS: BP 147/84
[2016-06-13 20:00] VITALS: BP 127/63
[2016-06-13] MEDS: LISINOPRIL 40 MG TAB PO SCH (20:07)
[2016-06-13] MEDS: traZODone 100 MG TAB PO SCH (20:07)
[2016-06-13] MEDS: SENNA 8.6 MG TAB (SENOKOT) PO SCH (21:00)
[2016-06-14 06:00] VITALS: BP 122/61
[2016-06-14] MEDS: ACETAMINOPHEN TAB 650MG DOSE (2X325MG) PO PRN ×2 (06:15→20:17)
[2016-06-14] MEDS: ADVAIR DISKUS 250/50 INH PWD INH SCH ×2 (07:47→19:54)
[2016-06-14] MEDS: DOCUSATE SODIUM 100 MG CAP PO SCH ×2 (09:00→21:00)
[2016-06-14] MEDS: METOPROLOL TARTRATE 100 MG TAB PO SCH ×2 (09:00→20:16)
--- NOTE | 2016-06-14 09:37 | IPNPDOC ---
Spar Finisher Progress Note DATE OF SERVICE: 06/14/2016 DATE OF ADMISSION: Jun 09, 2016 at 12:50 INPATIENT REHABILITATION ADMISSION DAY: #5 SUBJECTIVE: Patient is a 55-year-old white female with right occipital parietal ICH. Patient noted some back pain last night that responded to Tylenol 650 mg and is not having problems with pain, fever, chills or general other complaints. ALLERGIES: See Below MEDICATIONS: Reviewed, see below. OBJECTIVE: VITAL SIGNS: Please see below. PHYSICAL EXAMINATION: GENERAL: Short obese middle-age white female who is alert and well oriented. Speech is clear coherent and appropriate affect is pleasant and cooperative. Patient is in no acute distress sitting up in physical therapy having been doing leg exercises. She is showing fairly good sitting balance as she does this. HEENT: Incision continues to look good without inflammation or drainage. CARDIOVASCULAR: Regular rate and rhythm with normal S1 and S2. 2 out 4 bilateral radial pulses. LUNGS: All spencer clear to auscultation with good air movement. ABDOMEN: Obese, nontender, with normal bowel sounds in all quadrants. NEUROLOGICAL: As above showing progress in strength and balance. SKIN: Scalp incision healing well. LABORATORY DATA: Reviewed. Please see below. MICROBIOLOGY: Please see below. IMAGING: No new imaging. DVT prophylaxis ordered?: Patient using NILSON hose as unable to anticoagulate due to ICH. ASSESSMENT AND PLAN: 1. Rehabilitation of right occipital parietal ICH: Patient in good spirits and motivated and working hard with PT and OT. 2. Type 2 diabetes mellitus: Fairly good control noted. 3. Hypertension: Patient writing normal level blood pressures on current regimen. TIME SPENT: Chart Review, examination and documentation greater than 25 minutes. Allergies Coded Allergies: Levofloxacin (Verified Allergy, Unknown, Rash, Swelling, Renal, 06/09/16) Vital Signs Vital Signs Date Time Temp Pulse Resp B/P Pulse Ox O2 Delivery O2 Flow Rate FiO2 06/14/16 06:00 97.4 70 18 122/61 97 Nasal Cannula 2.0 Current Medications Current Medications Current Medications Acetaminophen (Tylenol Tab) 650 mg Q6HP PRN PO PAIN / FEVER Last administered on 06/14/16t 06:15; Start 06/14/16 at 06:15; Stop 07/14/16 at 06:14 Albuterol Sulfate (Proventil, Ventolin Hfa) 2 puff Q6HP PRN INH SHORTNESS OF BREATH; Start 06/09/16 at 14:00; Stop 07/09/16 at 13:59 Albuterol/ Ipratropium (Duoneb (Ipr 0.5mg/Alb 2.5mg)) 3 ml Q4HP PRN NEB SOB/ WHEEZING; Start 06/09/16 at 14:00; Stop 07/09/16 at 13:59 Aspirin (Ecotrin) 81 mg DAILY PO Last administered on 06/13/16 08:54; Start at 09:00; Stop 07/09/16 at 08:59 Bacitracin (Bacitracin Oint) Topically to craniot... TID TOP Last administered on 06/13/16 20:08; Start 06/09/16 at 16:00; Stop 07/09/16 at 15:59 Bupropion HCl (Wellbutrin Xl) 300 mg QAM PO Last administered on 06/13/16 08: 55; Start 06/09/16 at 09:00; Stop 07/09/16 at 08:59 Diltiazem HCl (Cardizem Cd) 120 mg QHS PO Last administered on 06/13/16 20:06 ; Start 06/09/16 at 21:00; Stop 07/09/16 at 20:59 Docusate Sodium (Colace) 100 mg BID PO Last administered on 06/11/16 08:59; Start 06/09/16 at 21:00; Stop 07/09/16 at 20:59 Home Med (Med Rec Complete!) ASDIRECTED XX ; Start 06/09/16 at 15:00; Stop at 15:00; Status DC Levetiracetam (Keppra) 750 mg BID PO Last administered on 06/13/16 20:07; Start 06/10/16 at 21:00; Stop 07/10/16 at 20:59 Lisinopril (Prinivil) 40 mg QPM PO Last administered on 06/13/16 20:07; Start 06/09/16 at 21:00; Stop 07/09/16 at 20:59 Loratadine (Claritin) 10 mg DAILY PO Last administered on 06/13/16 08:52; Start 06/09/16 at 09:00; Stop 07/09/16 at 08:59 Magnesium Hydroxide (Milk Of Magnesia) 30 ml DAILYPRN PRN PO CONSTIPATION; Start 06/09/16 at 14:00; Stop 07/09/16 at 13:59 Metoprolol Tartrate (Lopressor) 100 mg BID PO Last administered on 06/13/16 20 :07; Start 06/09/16 at 21:00; Stop 07/09/16 at 20:59 Nystatin (Mycostatin Powder, Nystop) Skin folds BID TOP Last administered on 20:08; Start 06/09/16 at 21:00; Stop 07/09/16 at 20:59 Omeprazole (PriLOSEC) 20 mg DAILY PO Last administered on 06/13/16 08:55; Start 06/09/16 at 09:00; Stop 07/09/16 at 08:59 Rosuvastatin Calcium (Crestor) 40 mg DAILY PO Last administered on 06/13/16 08 :53; Start 06/09/16 at 09:00; Stop 07/09/16 at 08:59 Salmeterol Xinafoate/ Fluticasone (Advair Diskus 250/50) 1 puff BID INH Last administered on 06/14/16 07:47; Start 06/09/16 at 21:00; Stop 07/09/16 at 20:59 Senna (Senokot) 1 tab QHS PO Last administered on 06/10/16 21:00; Start at 21:00; Stop 07/09/16 at 20:59 Trazodone HCl (Desyrel) 300 mg QHS PO Last administered on 06/13/16 20:07; Start 06/09/16 at 21:00; Stop 07/09/16 at 20:59 TAL CROFT MD Jun 14, 2016 09:37
[2016-06-14] MEDS: OMEPRAZOLE 20 MG CAP PO SCH (10:13)
[2016-06-14] MEDS: ROSUVASTATIN 10 MG TAB (CRESTOR) PO SCH (10:14)
[2016-06-14] MEDS: levETIRAcetam 250MG TABLET (KEPPRA) PO SCH ×2 (10:15→20:16)
[2016-06-14] MEDS: LORATADINE 10 MG TAB PO SCH (10:16)
[2016-06-14] MEDS: ASPIRIN 81 MG ENTERIC TAB PO SCH (10:16)
[2016-06-14] MEDS: buPROPion **XL** TABLET 150MG (WELLBUTRIN XL) PO SCH (10:16)
[2016-06-14] MEDS: BACITRACIN OINT 30GM TOP SCH ×3 (10:18→20:18)
[2016-06-14] MEDS: NYSTATIN 100,000 UNITS/GM TOPICAL PWD 15 GM TOP SCH ×2 (10:18→20:17)
--- NOTE | 2016-06-14 11:28 | IPNPDOC ---
Subjective Date Seen The patient was seen on 06/14/16. Subjective Chief Complaint/HPI The patient is a 55-year-old female admitted with a reason for visit of Right Intraparenchymal Hemorrhage. Events since last encounter Requested to re evaluate BP. This AM 108 systolic, Some doses of Metoprolol held as per parameter. Pt states occas dizzy if quick position change. Pulmonary: Denies: Cough, Dyspnea Cardiovascular: Denies: Chest Pain, Lt Headedness, Orthopnea, Palpitations, Paroxysmal Noc. Dyspnea Gastrointestinal: Denies: Abdominal Pain, Constipation, Diarrhea, Nausea, Vomiting Objective Physical Examination General Exam: Positive: Alert Eye Exam: Positive: PERRLA Neck Exam: Positive: Supple Chest Exam: Positive: Clear to auscultation, Normal air movement Heart Exam: Positive: Normal S1, Normal S2, Rate Normal, Regular Rhythm, Negative: Murmurs, Rubs Skin Exam: Positive: Nl turgor and temperature Assessment /Plan Problems (1) CVA (cerebrovascular accident due to intracerebral hemorrhage) Status: Acute Problem Text: * Management as per ARU * PT/OT/ST * Patient remains on Keppra 750 mg by mouth twice a day seizure prophylaxis as per [facility] neurology. * Follow-up with neurology and neurosurgery following discharge -[facility]. Plan for follow-up MRI brain in 4 weeks. * Bowel care (2) COPD (chronic obstructive pulmonary disease) Status: Chronic Response to Treatment: Stable Problem Text: * Advair/albuterol as needed (3) Depression Status: Chronic Response to Treatment: Stable Problem Text: * Continue Wellbutrin (4) HTN (hypertension) Status: Chronic Response to Treatment: Stable Problem Text: * Will reduce lisinopril to 30mg HS with hold parameter * Update labs in AM. (5) GERD (gastroesophageal reflux disease) Status: Chronic Response to Treatment: Stable Problem Text: * PPI (6) Hyperlipemia Status: Chronic Response to Treatment: Stable Problem Text: * Continue statin (7) PAF (paroxysmal atrial fibrillation) Status: Chronic Response to Treatment: Stable Problem Text: * Xarelto on hold * Aspirin 81 mg restarted as per neurosurgery [facility] * Metoprolol/Cardizem for rate control * EKG 06/10 sinus rhythm * Monitor (8) CAD (coronary artery disease) Status: Chronic Response to Treatment: Stable Problem Text: * Metoprolol * Aspirin 81 mg (9) Allergic rhinitis Status: Chronic Response to Treatment: Stable Problem Text: * Continue Claritin Plan/VTE VTE Prophylaxis Ordered?: Yes (SCD/TEDS) VTE Exclusion Pharmacological: Hemorrhage (ICH) VS, I&O, 24H, Fishbone Vital Signs/I&O Vital Signs Date Time Temp Pulse Resp B/P Pulse Ox O2 Delivery O2 Flow Rate FiO2 06/14/16 10:00 Room Air 06/14/16 09:00 79 108/64 06/14/16 06:00 97.4 18 97 2.0 I&O- Last 24 Hours up to 6 AM 06/14/16 05:59 Intake Total 1200 ml Output Total 700 ml Balance 500 ml Katie Leija Jun 14, 2016 11:28
[2016-06-14 14:00] VITALS: BP 126/73
[2016-06-14 20:00] VITALS: BP 148/82
[2016-06-14] MEDS: traZODone 100 MG TAB PO SCH (20:17)
[2016-06-14] MEDS: LISINOPRIL 10 MG TAB PO SCH (20:17)
[2016-06-14] MEDS: SENNA 8.6 MG TAB (SENOKOT) PO SCH (21:00)
[2016-06-15] MEDS: ACETAMINOPHEN TAB 650MG DOSE (2X325MG) PO PRN (03:10)
[2016-06-15 06:00] VITALS: BP 127/61
[2016-06-15 07:09] LABS: MEAN CORPUSCULAR HEMOGLOBIN 26.2 pg (27.0-33.0); MEAN CORPUSCULAR HGB CONC 30.2 g/dl (32.0-36.5); MEAN CORPUSCULAR VOLUME 86.7 fl (80.0-96.0); RED CELL DISTRIBUTION WIDTH 14.3 % (11.5-14.5); WHITE BLOOD COUNT 6.4 K/mm3 (4.0-10.0)
[2016-06-15 07:31] LABS: ALBUMIN 2.9 GM/DL (3.2-5.2); ALBUMIN/GLOBULIN RATIO 0.85 (1.00-1.93); ALKALINE PHOSPHATASE 99 U/L (45-117); ALT/SGPT 28 U/L (12-78); ANION GAP 4 MEQ/L (8-16); AST/SGOT 15 U/L (15-37); BILIRUBIN,TOTAL 0.3 MG/DL (0.2-1.0); BLOOD UREA NITROGEN 8 MG/DL (7-18); CALCIUM LEVEL 9.1 MG/DL (8.5-10.1); CARBON DIOXIDE LEVEL 32 MEQ/L (21-32); CHLORIDE LEVEL 108 MEQ/L (98-107); CREATININE FOR GFR 0.86 MG/DL (0.55-1.02); GLOMERULAR FILTRATION RATE > 60.0 (>51); GLUCOSE, FASTING 99 MG/DL (70-105); POTASSIUM SERUM 4.5 MEQ/L (3.5-5.1); SODIUM LEVEL 144 MEQ/L (136-145); TOTAL PROTEIN 6.3 GM/DL (6.4-8.2)
[2016-06-15] MEDS: ADVAIR DISKUS 250/50 INH PWD INH SCH ×2 (08:17→21:42)
[2016-06-15] MEDS: METOPROLOL TARTRATE 100 MG TAB PO SCH ×2 (09:14→21:05)
[2016-06-15] MEDS: OMEPRAZOLE 20 MG CAP PO SCH (09:14)
[2016-06-15] MEDS: DOCUSATE SODIUM 100 MG CAP PO SCH ×2 (09:14→21:06)
[2016-06-15] MEDS: levETIRAcetam 250MG TABLET (KEPPRA) PO SCH ×2 (09:14→21:03)
[2016-06-15] MEDS: LORATADINE 10 MG TAB PO SCH (09:14)
[2016-06-15] MEDS: ASPIRIN 81 MG ENTERIC TAB PO SCH (09:14)
[2016-06-15] MEDS: ROSUVASTATIN 10 MG TAB (CRESTOR) PO SCH (09:15)
[2016-06-15] MEDS: buPROPion **XL** TABLET 150MG (WELLBUTRIN XL) PO SCH (09:15)
[2016-06-15] MEDS: BACITRACIN OINT 30GM TOP SCH ×3 (09:16→21:07)
[2016-06-15] MEDS: NYSTATIN 100,000 UNITS/GM TOPICAL PWD 15 GM TOP SCH ×2 (09:16→21:07)
--- NOTE | 2016-06-15 11:12 | IPNPDOC ---
Subjective Date Seen The patient was seen on 06/15/16. Subjective Chief Complaint/HPI The patient is a 55-year-old female admitted with a reason for visit of Right Intraparenchymal Hemorrhage. Events since last encounter Patient states she is feeling well. She is out of bed in the wheelchair and working with therapy. She has no concerns. ENT: Denies: Head Aches, Dysphagia Pulmonary: Denies: Dyspnea, Cough Cardiovascular: Denies: Chest Pain, Palpitations, Orthopnea, Paroxysmal Noc. Dyspnea, Lt Headedness Gastrointestinal: Denies: Nausea, Vomiting, Abdominal Pain, Diarrhea, Constipation Genitourinary: Denies: Dysuria, Frequency, Incontinence, Retention Objective Physical Examination General Exam: Positive: Alert Eye Exam: Positive: PERRLA Neck Exam: Positive: Supple Chest Exam: Positive: Clear to auscultation, Normal air movement Heart Exam: Positive: Rate Normal, Regular Rhythm, Normal S1, Normal S2, Negative: Murmurs, Rubs Skin Exam: Positive: Nl turgor and temperature Assessment /Plan Problems (1) CVA (cerebrovascular accident due to intracerebral hemorrhage) Status: Acute Problem Text: * Management as per ARU * PT/OT/ST * Patient remains on Keppra 750 mg by mouth twice a day seizure prophylaxis as per [facility] neurology. * Follow-up with neurology and neurosurgery following discharge -[facility]. Plan for follow-up MRI brain in 4 weeks. * Bowel care (2) COPD (chronic obstructive pulmonary disease) Status: Chronic Response to Treatment: Stable Problem Text: * Advair/albuterol as needed (3) Depression Status: Chronic Response to Treatment: Stable Problem Text: * Continue Wellbutrin (4) HTN (hypertension) Status: Chronic Response to Treatment: Stable Problem Text: * Lisinopril reduced to 30mg HS with hold parameter 06/14 * BP 127/61 this a.m. * Monitor (5) GERD (gastroesophageal reflux disease) Status: Chronic Response to Treatment: Stable Problem Text: * PPI (6) Hyperlipemia Status: Chronic Response to Treatment: Stable Problem Text: * Continue statin (7) PAF (paroxysmal atrial fibrillation) Status: Chronic Response to Treatment: Stable Problem Text: * Xarelto on hold * Aspirin 81 mg restarted as per neurosurgery [facility] * Metoprolol/Cardizem for rate control * EKG 06/10 sinus rhythm * Monitor (8) CAD (coronary artery disease) Status: Chronic Response to Treatment: Stable Problem Text: * Metoprolol * Aspirin 81 mg (9) Allergic rhinitis Status: Chronic Response to Treatment: Stable Problem Text: * Continue Claritin (10) Anemia Status: Chronic Problem Text: * Hemoglobin stable * Add iron studies, B12, folate to labs. Plan/VTE VTE Prophylaxis Ordered?: Yes (SCD/TEDS) VTE Exclusion Pharmacological: Hemorrhage (ICH) VS, I&O, 24H, Fishbone Vital Signs/I&O Vital Signs Date Time Temp Pulse Resp B/P (MAP) Pulse Ox O2 Delivery O2 Flow Rate FiO2 06/15/16 09:14 60 127/61 06/15/16 09:00 Room Air 06/15/16 06:00 98.3 18 100 06/14/16 22:05 2.0 I&O- Last 24 Hours up to 6 AM 06/15/16 05:59 Intake Total 1140 ml Output Total 0 ml Balance 1140 ml Laboratory Data 24H LABS Laboratory Tests 2 06/15/16 06:56: Anion Gap 4L, Glomerular Filtration Rate > 60.0, Blood Urea Nitrogen 8, Creatinine 0.86, Sodium Level 144, Potassium Level 4.5, Chloride Level 108H, Carbon Dioxide Level 32, Calcium Level 9.1, Aspartate Amino Transf (AST/SGOT) 15 , Alanine Aminotransferase (ALT/SGPT) 28, Alkaline Phosphatase 99, Total Bilirubin 0.3, Total Protein 6.3L, Albumin 2.9L, Albumin/Globulin Ratio 0.85L CBC/BMP Laboratory Tests 06/15/16 06:56 Red Blood Count 4.05, Mean Corpuscular Volume 86.7, Mean Corpuscular Hemoglobin 26.2 L, Mean Corpuscular Hemoglobin Concent 30.2 L, Red Cell Distribution Width 14.3, Calcium Level 9.1, Aspartate Amino Transf (AST/SGOT) 15, Alanine Aminotransferase (ALT/SGPT) 28, Alkaline Phosphatase 99, Total Bilirubin 0.3, Total Protein 6.3 L, Albumin 2.9 L Katie Leija Jun 15, 2016 11:12
[2016-06-15 11:44] LABS: FERRITIN 40 NG/ML (8-252); PERCENT SATURATION 6.4 % (13.2-37.4); TOTAL IRON BINDING CAPACITY 342 UG/DL (250-450)
--- NOTE | 2016-06-15 12:13 | IPNPDOC ---
Horticulture/Floriculture Teacher Progress Note DATE OF SERVICE: 06/15/2016 DATE OF ADMISSION: Jun 09, 2016 at 12:50 INPATIENT REHABILITATION ADMISSION DAY: #6 SUBJECTIVE: Patient is a 55-year-old white female with occipital parietal ICH. Patient in no acute distress denies any significant pain, fever, chills or other acute problems. ALLERGIES: See Below MEDICATIONS: Reviewed, see below. OBJECTIVE: VITAL SIGNS: Please see below. PHYSICAL EXAMINATION: GENERAL: Short overweight middle-age white female with right occipital parietal craniotomy site for drainage of ICH. The incision line has healed I have removed the eugene today with no wound problems or drainage as the incision line has healed together well. HEENT: Normocephalic/atraumatic with healed craniotomy incision. CARDIOVASCULAR: Regular rate and rhythm with normal S1-S2 without S3-S4 murmurs or rubs. Regular 2 out 4 bilateral radial pulses. LUNGS: All spencer are clear auscultation. ABDOMEN: Obese, nontender, with normal bowel sounds in all quadrants. NEUROLOGICAL: Patient is alert and well oriented with positive attitude and overall good spirits and cooperating well with therapy. Patient with some impulsivity still and some diminution of balance but improving. SKIN: Craniotomy incision intact otherwise no problems found. LABORATORY DATA: Reviewed. Please see below. MICROBIOLOGY: Please see below. IMAGING: No new imaging today. DVT prophylaxis ordered?: No change. ASSESSMENT AND PLAN: 1. Rehabilitation of right occipital parietal intracerebral hemorrhage: Patient participating well with therapy showing increasing endurance and activity. She has some impulsivity but overall good energy effort and initiation. Mobility and transfers are progressing well. 2. Atrial fibrillation: We are unable to anticoagulate her due to the recent intercerebral hemorrhage, but fortunately patient has been staying and sinus rhythm and aspirin therapy appears to be appropriate at this time. 3. GERD: Patient not have a problem on current regimen continue with Omeprazole. TIME SPENT: Chart Review, examination and documentation greater than 25 minutes. Allergies Coded Allergies: Levofloxacin (Verified Allergy, Unknown, Rash, Swelling, Renal, 06/09/16) Vital Signs Vital Signs Date Time Temp Pulse Resp B/P (MAP) Pulse Ox O2 Delivery O2 Flow Rate FiO2 06/15/16 09:14 60 127/61 06/15/16 09:00 Room Air 06/15/16 06:00 98.3 18 100 06/14/16 22:05 2.0 Laboratory Data CBC/BMP Laboratory Tests 06/15/16 06:56 Red Blood Count 4.05, Mean Corpuscular Volume 86.7, Mean Corpuscular Hemoglobin 26.2 L, Mean Corpuscular Hemoglobin Concent 30.2 L, Red Cell Distribution Width 14.3, Calcium Level 9.1, Aspartate Amino Transf (AST/SGOT) 15, Alanine Aminotransferase (ALT/SGPT) 28, Alkaline Phosphatase 99, Total Bilirubin 0.3, Total Protein 6.3 L, Albumin 2.9 L Labs 24H Laboratory Tests 2 06/15/16 06:56: Anion Gap 4L, Glomerular Filtration Rate > 60.0, Blood Urea Nitrogen 8, Creatinine 0.86, Sodium Level 144, Potassium Level 4.5, Chloride Level 108H, Carbon Dioxide Level 32, Calcium Level 9.1, Aspartate Amino Transf (AST/SGOT) 15 , Alanine Aminotransferase (ALT/SGPT) 28, Alkaline Phosphatase 99, Total Bilirubin 0.3, Total Protein 6.3L, Albumin 2.9L, Iron Level 22L, Total Iron Binding Capacity 342, Transferrin % Saturation 6.4L, Ferritin 40, Albumin/ Globulin Ratio 0.85L 06/15/16 11:36: Current Medications Current Medications Current Medications Acetaminophen (Tylenol Tab) 650 mg Q6HP PRN PO PAIN / FEVER Last administered on 06/15/16 03:10; Start 06/14/16 at 06:15; Stop 07/14/16 at 06:14 Albuterol Sulfate (Proventil, Ventolin Hfa) 2 puff Q6HP PRN INH SHORTNESS OF BREATH; Start 06/09/16 at 14:00; Stop 07/09/16 at 13:59 Albuterol/ Ipratropium (Duoneb (Ipr 0.5mg/Alb 2.5mg)) 3 ml Q4HP PRN NEB SOB/ WHEEZING; Start 06/09/16 at 14:00; Stop 07/09/16 at 13:59 Aspirin (Ecotrin) 81 mg DAILY PO Last administered on 06/15/16 09:14; Start at 09:00; Stop 07/09/16 at 08:59 Bacitracin (Bacitracin Oint) Topically to craniot... TID TOP Last administered on 06/15/16 09:16; Start 06/09/16 at 16:00; Stop 07/09/16 at 15:59 Bupropion HCl (Wellbutrin Xl) 300 mg QAM PO Last administered on 06/15/16 09: 15; Start 06/09/16 at 09:00; Stop 07/09/16 at 08:59 Diltiazem HCl (Cardizem Cd) 120 mg QHS PO Last administered on 06/14/16 20:16 ; Start 06/09/16 at 21:00; Stop 07/09/16 at 20:59 Docusate Sodium (Colace) 100 mg BID PO Last administered on 06/15/16 09:14; Start 06/09/16 at 21:00; Stop 07/09/16 at 20:59 Home Med (Med Rec Complete!) ASDIRECTED XX ; Start 06/09/16 at 15:00; Stop at 15:00; Status DC Levetiracetam (Keppra) 750 mg BID PO Last administered on 06/15/16 09:14; Start 06/10/16 at 21:00; Stop 07/10/16 at 20:59 Lisinopril (Prinivil) 30 mg QHS PO Last administered on 06/14/16 20:17; Start 06/14/16 at 21:00; Stop 07/14/16 at 20:59 Lisinopril (Prinivil) 40 mg QPM PO Last administered on 06/13/16 20:07; Start 06/09/16 at 21:00; Stop 06/14/16 at 11:26; Status DC Loratadine (Claritin) 10 mg DAILY PO Last administered on 06/15/16 09:14; Start 06/09/16 at 09:00; Stop 07/09/16 at 08:59 Magnesium Hydroxide (Milk Of Magnesia) 30 ml DAILYPRN PRN PO CONSTIPATION; Start 06/09/16 at 14:00; Stop 07/09/16 at 13:59 Metoprolol Tartrate (Lopressor) 100 mg BID PO Last administered on 06/15/16 09 :14; Start 06/09/16 at 21:00; Stop 07/09/16 at 20:59 Nystatin (Mycostatin Powder, Nystop) Skin folds BID TOP Last administered on 09:16; Start 06/09/16 at 21:00; Stop 07/09/16 at 20:59 Omeprazole (PriLOSEC) 20 mg DAILY PO Last administered on 06/15/16 09:14; Start 06/09/16 at 09:00; Stop 07/09/16 at 08:59 Rosuvastatin Calcium (Crestor) 40 mg DAILY PO Last administered on 06/15/16 09 :15; Start 06/09/16 at 09:00; Stop 07/09/16 at 08:59 Salmeterol Xinafoate/ Fluticasone (Advair Diskus 250/50) 1 puff BID INH Last administered on 06/15/16 08:17; Start 06/09/16 at 21:00; Stop 07/09/16 at 20:59 Senna (Senokot) 1 tab QHS PO Last administered on 06/10/16 21:00; Start at 21:00; Stop 07/09/16 at 20:59 Trazodone HCl (Desyrel) 300 mg QHS PO Last administered on 06/14/16 20:17; Start 06/09/16 at 21:00; Stop 07/09/16 at 20:59 TAL CROFT MD Jun 15, 2016 12:13
[2016-06-15 13:05] LABS: FOLATE 11.1 NG/ML (>5.4)
[2016-06-15 14:00] VITALS: BP 137/68
[2016-06-15 20:00] VITALS: BP 155/84
[2016-06-15] MEDS: LISINOPRIL 10 MG TAB PO SCH (21:04)
[2016-06-15] MEDS: traZODone 100 MG TAB PO SCH (21:05)
[2016-06-15] MEDS: SENNA 8.6 MG TAB (SENOKOT) PO SCH (21:06)
[2016-06-16 06:00] VITALS: BP 163/71
[2016-06-16] MEDS: ADVAIR DISKUS 250/50 INH PWD INH SCH ×2 (07:35→20:18)
[2016-06-16] MEDS: levETIRAcetam 250MG TABLET (KEPPRA) PO SCH ×2 (08:31→20:32)
[2016-06-16] MEDS: OMEPRAZOLE 20 MG CAP PO SCH (08:32)
[2016-06-16] MEDS: DOCUSATE SODIUM 100 MG CAP PO SCH ×2 (08:32→20:36)
[2016-06-16] MEDS: buPROPion **XL** TABLET 150MG (WELLBUTRIN XL) PO SCH (08:32)
[2016-06-16] MEDS: ROSUVASTATIN 10 MG TAB (CRESTOR) PO SCH (08:32)
[2016-06-16] MEDS: METOPROLOL TARTRATE 100 MG TAB PO SCH ×2 (08:32→20:33)
[2016-06-16] MEDS: LORATADINE 10 MG TAB PO SCH (08:33)
[2016-06-16] MEDS: ASPIRIN 81 MG ENTERIC TAB PO SCH (08:33)
[2016-06-16] MEDS: BACITRACIN OINT 30GM TOP SCH ×3 (08:33→20:37)
[2016-06-16] MEDS: NYSTATIN 100,000 UNITS/GM TOPICAL PWD 15 GM TOP SCH ×2 (08:34→20:38)
[2016-06-16 10:50] VITALS: BP 128/70
--- NOTE | 2016-06-16 11:43 | IPNPDOC ---
Machine Edge Bander Progress Note DATE OF SERVICE: 06/16/2016 DATE OF ADMISSION: Jun 09, 2016 at 12:50 INPATIENT REHABILITATION ADMISSION DAY: #7 SUBJECTIVE: Patient is a 55-year-old female with right occipital parietal intercerebral hemorrhage status post craniotomy and drainage. Patient without complaints today expressing her desire to transition to home as soon as she is able. No pain or other complaints. ALLERGIES: See Below MEDICATIONS: Reviewed, see below. OBJECTIVE: VITAL SIGNS: Please see below. PHYSICAL EXAMINATION: GENERAL: Short obese middle-age white female who is alert and oriented 4. Speech is clear coherent and appropriate. Affect pleasant and cooperative and patient seems rather energetic today when seen in OT. HEENT: Incision without any drainage has healed across otherwise normocephalic/ atraumatic. CARDIOVASCULAR: Regular rate and rhythm with normal S1 and S2 without S3-S4 murmurs or rubs. 2 out 4 bilateral radial pulses. LUNGS: All spencer clear to auscultation. ABDOMEN: Obese, nontender with normal bowel sounds in all quadrants. NEUROLOGICAL: As above. Patient progressing and motor endurance and skills however some left neglect is still notable. SKIN: As noted above on scalp incision. LABORATORY DATA: Reviewed. Please see below. MICROBIOLOGY: Please see below. IMAGING: No new imaging. DVT prophylaxis ordered?: NILSON mock with no anticoagulants due to intercerebral hemorrhage. ASSESSMENT AND PLAN: 1. Rehabilitation of right occipital parietal intercerebral hemorrhage: Patient progressing well. We'll review her in team rounds today. 2. Hypertension: When taken manually blood pressure was normal & earlier reads today may be machine artifacts. 3. Discharge planning: Patient's impulsiveness is the main concern that we are seeing as a team. However she is making excellent progress in mobility, attention and concentration and communication. But she does have some left spatial deficits and decrease and awareness of the left body and impulsive desire to get up and do which she wants to at times. We therefore feel is a team that family training will be garcia to her progression and safety at home and will have therapy work with them tomorrow as well as the weekend. We'll also have patient her and possibly her daughter use the apartment and her room respectively to stay through the weekend and developed the monitoring skills and coaching skills to supervise patient and keep her functioning in a safe fashion. This should be of great assistance in simulating being home while they're still the same thing at of the rehabilitation unit resources available to the patient and her family. Overall though her progress is such that the plan is to discharge her to home on June 20. She will nail walker and shower chair. Due to the major neurologic event of the intercerebral hemorrhage and she has not felt to be appropriate for driving and should not drive until recertified by the [facility]. 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 TIME SPENT: Chart Review, examination and documentation greater than 35 minutes. Allergies Coded Allergies: Levofloxacin (Verified Allergy, Unknown, Rash, Swelling, Renal, 06/09/16) Vital Signs Vital Signs Date Time Temp Pulse Resp B/P (MAP) Pulse Ox O2 Delivery O2 Flow Rate FiO2 06/16/16 10:50 128/70 (89) 06/16/16 08:32 71 06/16/16 07:40 Room Air 06/16/16 06:00 97.7 18 93 2.0 Current Medications Current Medications Current Medications Acetaminophen (Tylenol Tab) 650 mg Q6HP PRN PO PAIN / FEVER Last administered on 06/15/16 03:10; Start 06/14/16 at 06:15; Stop 07/14/16 at 06:14 Albuterol Sulfate (Proventil, Ventolin Hfa) 2 puff Q6HP PRN INH SHORTNESS OF BREATH; Start 06/09/16 at 14:00; Stop 07/09/16 at 13:59 Albuterol/ Ipratropium (Duoneb (Ipr 0.5mg/Alb 2.5mg)) 3 ml Q4HP PRN NEB SOB/ WHEEZING; Start 06/09/16 at 14:00; Stop 07/09/16 at 13:59 Aspirin (Ecotrin) 81 mg DAILY PO Last administered on 06/16/16 08:33; Start at 09:00; Stop 07/09/16 at 08:59 Bacitracin (Bacitracin Oint) Topically to craniot... TID TOP Last administered on 06/16/16 08:33; Start 06/09/16 at 16:00; Stop 07/09/16 at 15:59 Bupropion HCl (Wellbutrin Xl) 300 mg QAM PO Last administered on 06/16/16 08: 32; Start 06/09/16 at 09:00; Stop 07/09/16 at 08:59 Diltiazem HCl (Cardizem Cd) 120 mg QHS PO Last administered on 06/15/16 21:05 ; Start 06/09/16 at 21:00; Stop 07/09/16 at 20:59 Docusate Sodium (Colace) 100 mg BID PO Last administered on 06/16/16 08:32; Start 06/09/16 at 21:00; Stop 07/09/16 at 20:59 Home Med (Med Rec Complete!) ASDIRECTED XX ; Start 06/09/16 at 15:00; Stop at 15:00; Status DC Levetiracetam (Keppra) 750 mg BID PO Last administered on 06/16/16 08:31; Start 06/10/16 at 21:00; Stop 07/10/16 at 20:59 Lisinopril (Prinivil) 30 mg QHS PO Last administered on 06/15/16 21:04; Start 06/14/16 at 21:00; Stop 07/14/16 at 20:59 Lisinopril (Prinivil) 40 mg QPM PO Last administered on 06/13/16 20:07; Start 06/09/16 at 21:00; Stop 06/14/16 at 11:26; Status DC Loratadine (Claritin) 10 mg DAILY PO Last administered on 06/16/16 08:33; Start 06/09/16 at 09:00; Stop 07/09/16 at 08:59 Magnesium Hydroxide (Milk Of Magnesia) 30 ml DAILYPRN PRN PO CONSTIPATION; Start 06/09/16 at 14:00; Stop 07/09/16 at 13:59 Metoprolol Tartrate (Lopressor) 100 mg BID PO Last administered on 06/16/16 08 :32; Start 06/09/16 at 21:00; Stop 07/09/16 at 20:59 Nystatin (Mycostatin Powder, Nystop) Skin folds BID TOP Last administered on 08:34; Start 06/09/16 at 21:00; Stop 07/09/16 at 20:59 Omeprazole (PriLOSEC) 20 mg DAILY PO Last administered on 06/16/16 08:32; Start 06/09/16 at 09:00; Stop 07/09/16 at 08:59 Rosuvastatin Calcium (Crestor) 40 mg DAILY PO Last administered on 06/16/16 08 :32; Start 06/09/16 at 09:00; Stop 07/09/16 at 08:59 Salmeterol Xinafoate/ Fluticasone (Advair Diskus 250/50) 1 puff BID INH Last administered on 06/16/16 07:35; Start 06/09/16 at 21:00; Stop 07/09/16 at 20:59 Senna (Senokot) 1 tab QHS PO Last administered on 06/15/16 21:06; Start at 21:00; Stop 07/09/16 at 20:59 Trazodone HCl (Desyrel) 300 mg QHS PO Last administered on 06/15/16 21:05; Start 06/09/16 at 21:00; Stop 07/09/16 at 20:59 TAL CROFT MD Jun 16, 2016 11:43
--- NOTE | 2016-06-16 12:09 | IPNPDOC ---
Subjective Date Seen The patient was seen on 06/16/16. Subjective Chief Complaint/HPI The patient is a 55-year-old female admitted with a reason for visit of Right Intraparenchymal Hemorrhage. Events since last encounter Pt with no concerns. Anxious for D/C. ENT: Denies: Head Aches, Dysphagia Pulmonary: Denies: Dyspnea, Cough Cardiovascular: Denies: Chest Pain, Palpitations, Orthopnea, Paroxysmal Noc. Dyspnea, Lt Headedness Gastrointestinal: Denies: Nausea, Vomiting, Abdominal Pain, Diarrhea, Constipation Genitourinary: Denies: Dysuria, Frequency, Incontinence, Retention Objective Physical Examination General Exam: Positive: Alert Eye Exam: Positive: PERRLA Neck Exam: Positive: Supple Chest Exam: Positive: Clear to auscultation, Normal air movement Heart Exam: Positive: Rate Normal, Regular Rhythm, Normal S1, Normal S2, Negative: Murmurs, Rubs Skin Exam: Positive: Nl turgor and temperature Assessment /Plan Problems (1) CVA (cerebrovascular accident due to intracerebral hemorrhage) Status: Acute Problem Text: * Management as per ARU * PT/OT/ST * Patient remains on Keppra 750 mg by mouth twice a day seizure prophylaxis as per [facility] neurology. * Follow-up with neurology and neurosurgery following discharge -[facility]. Plan for follow-up MRI brain in 4 weeks. * Bowel care (2) COPD (chronic obstructive pulmonary disease) Status: Chronic Response to Treatment: Stable Problem Text: * Advair/albuterol as needed (3) Depression Status: Chronic Response to Treatment: Stable Problem Text: * Continue Wellbutrin (4) HTN (hypertension) Status: Chronic Response to Treatment: Stable Problem Text: * Lisinopril reduced to 30mg HS with hold parameter 06/14 * BP 128/70 this a.m. * Monitor (5) GERD (gastroesophageal reflux disease) Status: Chronic Response to Treatment: Stable Problem Text: * PPI (6) Hyperlipemia Status: Chronic Response to Treatment: Stable Problem Text: * Continue statin (7) PAF (paroxysmal atrial fibrillation) Status: Chronic Response to Treatment: Stable Problem Text: * Xarelto on hold * Aspirin 81 mg restarted as per neurosurgery [facility] * Metoprolol/Cardizem for rate control * EKG 06/10 sinus rhythm * Monitor (8) CAD (coronary artery disease) Status: Chronic Response to Treatment: Stable Problem Text: * Metoprolol * Aspirin 81 mg (9) Allergic rhinitis Status: Chronic Response to Treatment: Stable Problem Text: * Continue Claritin (10) Anemia Status: Chronic Problem Text: * Hemoglobin stable * iron studies, B12, folate to labs. * Stool OB pending. Plan/VTE VTE Prophylaxis Ordered?: Yes (SCD/TEDS) VTE Exclusion Pharmacological: Hemorrhage (ICH) Disposition as per ARU. VS, I&O, 24H, Fishbone Vital Signs/I&O Vital Signs Date Time Temp Pulse Resp B/P (MAP) Pulse Ox O2 Delivery O2 Flow Rate FiO2 06/16/16 10:50 128/70 (89) 06/16/16 08:32 71 06/16/16 07:40 Room Air 06/16/16 06:00 97.7 18 93 2.0 I&O- Last 24 Hours up to 6 AM 06/16/16 06:00 Intake Total 850 ml Balance 850 ml Katie Leija Jun 16, 2016 12:09
[2016-06-16 14:00] VITALS: BP 124/85
[2016-06-16 20:00] VITALS: BP 142/73
[2016-06-16] MEDS: LISINOPRIL 10 MG TAB PO SCH (20:33)
[2016-06-16] MEDS: SENNA 8.6 MG TAB (SENOKOT) PO SCH (20:36)
[2016-06-16] MEDS: traZODone 100 MG TAB PO SCH (20:36)
[2016-06-17 06:00] VITALS: BP 141/80
[2016-06-17] MEDS: ADVAIR DISKUS 250/50 INH PWD INH SCH ×2 (08:06→19:19)
[2016-06-17] MEDS: levETIRAcetam 250MG TABLET (KEPPRA) PO SCH ×2 (08:51→20:24)
[2016-06-17] MEDS: ROSUVASTATIN 10 MG TAB (CRESTOR) PO SCH (08:52)
[2016-06-17] MEDS: ASPIRIN 81 MG ENTERIC TAB PO SCH (08:53)
[2016-06-17] MEDS: OMEPRAZOLE 20 MG CAP PO SCH (08:53)
[2016-06-17] MEDS: LORATADINE 10 MG TAB PO SCH (08:54)
[2016-06-17] MEDS: METOPROLOL TARTRATE 100 MG TAB PO SCH ×2 (08:54→20:23)
[2016-06-17] MEDS: buPROPion **XL** TABLET 150MG (WELLBUTRIN XL) PO SCH (08:55)
[2016-06-17] MEDS: BACITRACIN OINT 30GM TOP SCH ×3 (08:55→20:24)
[2016-06-17] MEDS: NYSTATIN 100,000 UNITS/GM TOPICAL PWD 15 GM TOP SCH ×2 (08:56→20:24)
[2016-06-17] MEDS: DOCUSATE SODIUM 100 MG CAP PO SCH ×2 (09:00→20:23)
--- NOTE | 2016-06-17 10:39 | IPNPDOC ---
Photo Mask Inspector Progress Note DATE OF SERVICE: 06/17/2016 DATE OF ADMISSION: Jun 09, 2016 at 12:50 INPATIENT REHABILITATION ADMISSION DAY: #8 SUBJECTIVE: Patient is a 55-year-old female with right occipital parietal intercerebral hemorrhage status post craniotomy and drainage. Patient without complaints today expressing her desire to transition to home as soon as she is able, looking forward to Apt. time this weekend as step out of here. No pain or other complaints. ALLERGIES: See Below MEDICATIONS: Reviewed, see below. OBJECTIVE: VITAL SIGNS: Please see below. PHYSICAL EXAMINATION: GENERAL: Short obese middle-age white female who is alert and oriented 4. Speech is clear coherent and appropriate. Affect pleasant and cooperative and patient seems rather energetic today when seen in OT. HEENT: Incision without any drainage has healed across otherwise normocephalic/ atraumatic. CARDIOVASCULAR: Regular rate and rhythm with normal S1 and S2 without S3-S4 murmurs or rubs. 2 out 4 bilateral radial pulses. LUNGS: All spencer clear to auscultation. ABDOMEN: Obese, nontender with normal bowel sounds in all quadrants. NEUROLOGICAL: As above. Patient progressing and motor endurance and skills however some left neglect is still notable. SKIN: As noted above on scalp incision. 1. Rehabilitation of right occipital parietal intercerebral hemorrhage: Patient continuing do well having very good energy but still impulsive. We'll see how patient does with family supervision in the apartment this weekend and patient on track if this goes well for Monday discharge. TIME SPENT: Chart Review, examination and documentation greater than 15 minutes. Allergies Coded Allergies: Levofloxacin (Verified Allergy, Unknown, Rash, Swelling, Renal, 06/09/16) Vital Signs Vital Signs Date Time Temp Pulse Resp B/P (MAP) Pulse Ox O2 Delivery O2 Flow Rate FiO2 06/17/16 08:54 60 130/70 06/17/16 06:00 98.9 18 100 Room Air 06/16/16 20:00 3.0 Current Medications Current Medications Current Medications Acetaminophen (Tylenol Tab) 650 mg Q6HP PRN PO PAIN / FEVER Last administered on 06/15/16t 03:10; Start 06/14/16 at 06:15; Stop 07/14/16 at 06:14 Albuterol Sulfate (Proventil, Ventolin Hfa) 2 puff Q6HP PRN INH SHORTNESS OF BREATH; Start 06/09/16 at 14:00; Stop 07/09/16 at 13:59 Albuterol/ Ipratropium (Duoneb (Ipr 0.5mg/Alb 2.5mg)) 3 ml Q4HP PRN NEB SOB/ WHEEZING; Start 06/09/16 at 14:00; Stop 07/09/16 at 13:59 Aspirin (Ecotrin) 81 mg DAILY PO Last administered on 06/17/16 08:53; Start at 09:00; Stop 07/09/16 at 08:59 Bacitracin (Bacitracin Oint) Topically to craniot... TID TOP Last administered on 06/17/16 08:55; Start 06/09/16 at 16:00; Stop 07/09/16 at 15:59 Bupropion HCl (Wellbutrin Xl) 300 mg QAM PO Last administered on 06/17/16 08: 55; Start 06/09/16 at 09:00; Stop 07/09/16 at 08:59 Diltiazem HCl (Cardizem Cd) 120 mg QHS PO Last administered on 06/16/16 20:32 ; Start 06/09/16 at 21:00; Stop 07/09/16 at 20:59 Docusate Sodium (Colace) 100 mg BID PO Last administered on 06/16/16 08:32; Start 06/09/16 at 21:00; Stop 07/09/16 at 20:59 Home Med (Med Rec Complete!) ASDIRECTED XX ; Start 06/09/16 at 15:00; Stop at 15:00; Status DC Levetiracetam (Keppra) 750 mg BID PO Last administered on 06/17/16 08:51; Start 06/10/16 at 21:00; Stop 07/10/16 at 20:59 Lisinopril (Prinivil) 30 mg QHS PO Last administered on 06/16/16 20:33; Start 06/14/16 at 21:00; Stop 07/14/16 at 20:59 Lisinopril (Prinivil) 40 mg QPM PO Last administered on 06/13/16 20:07; Start 06/09/16 at 21:00; Stop 06/14/16 at 11:26; Status DC Loratadine (Claritin) 10 mg DAILY PO Last administered on 06/17/16 08:54; Start 06/09/16 at 09:00; Stop 07/09/16 at 08:59 Magnesium Hydroxide (Milk Of Magnesia) 30 ml DAILYPRN PRN PO CONSTIPATION; Start 06/09/16 at 14:00; Stop 07/09/16 at 13:59 Metoprolol Tartrate (Lopressor) 100 mg BID PO Last administered on 06/17/16 08 :54; Start 06/09/16 at 21:00; Stop 07/09/16 at 20:59 Nystatin (Mycostatin Powder, Nystop) Skin folds BID TOP Last administered on 08:56; Start 06/09/16 at 21:00; Stop 07/09/16 at 20:59 Omeprazole (PriLOSEC) 20 mg DAILY PO Last administered on 06/17/16 08:53; Start 06/09/16 at 09:00; Stop 07/09/16 at 08:59 Rosuvastatin Calcium (Crestor) 40 mg DAILY PO Last administered on 06/17/16 08 :52; Start 06/09/16 at 09:00; Stop 07/09/16 at 08:59 Salmeterol Xinafoate/ Fluticasone (Advair Diskus 250/50) 1 puff BID INH Last administered on 06/17/16 08:06; Start 06/09/16 at 21:00; Stop 07/09/16 at 20:59 Senna (Senokot) 1 tab QHS PO Last administered on 06/15/16 21:06; Start at 21:00; Stop 07/09/16 at 20:59 Trazodone HCl (Desyrel) 300 mg QHS PO Last administered on 06/16/16 20:36; Start 06/09/16 at 21:00; Stop 07/09/16 at 20:59 TAL CROFT MD Jun 17, 2016 10:39
--- NOTE | 2016-06-17 11:23 | IPNPDOC ---
Subjective Date Seen The patient was seen on 06/17/16. Subjective Chief Complaint/HPI The patient is a 55-year-old female admitted with a reason for visit of Right Intraparenchymal Hemorrhage. Events since last encounter Patient anxious for discharge. She has no other complaints or concerns at this time. Pulmonary: Denies: Dyspnea, Cough Cardiovascular: Denies: Chest Pain, Palpitations, Orthopnea, Paroxysmal Noc. Dyspnea, Lt Headedness Gastrointestinal: Denies: Nausea, Vomiting, Abdominal Pain, Diarrhea, Constipation Genitourinary: Denies: Dysuria, Frequency, Incontinence, Retention Objective Physical Examination General Exam: Positive: Alert Eye Exam: Positive: PERRLA Neck Exam: Positive: Supple Chest Exam: Positive: Clear to auscultation, Normal air movement Heart Exam: Positive: Rate Normal, Regular Rhythm, Normal S1, Normal S2, Negative: Murmurs, Rubs Skin Exam: Positive: Nl turgor and temperature Assessment /Plan Problems (1) CVA (cerebrovascular accident due to intracerebral hemorrhage) Status: Acute Problem Text: * Management as per ARU * PT/OT/ST * Patient remains on Keppra 750 mg by mouth twice a day seizure prophylaxis as per [facility] neurology. * Follow-up with neurology and neurosurgery following discharge -[facility]. Plan for follow-up MRI brain in 4 weeks. * Bowel care (2) COPD (chronic obstructive pulmonary disease) Status: Chronic Response to Treatment: Stable Problem Text: * Advair/albuterol as needed (3) Depression Status: Chronic Response to Treatment: Stable Problem Text: * Continue Wellbutrin (4) HTN (hypertension) Status: Chronic Response to Treatment: Stable Problem Text: * Lisinopril reduced to 30mg HS with hold parameter 06/14 * BP controlled * Monitor (5) GERD (gastroesophageal reflux disease) Status: Chronic Response to Treatment: Stable Problem Text: * PPI (6) Hyperlipemia Status: Chronic Response to Treatment: Stable Problem Text: * Continue statin (7) PAF (paroxysmal atrial fibrillation) Status: Chronic Response to Treatment: Stable Problem Text: * Xarelto on hold * Aspirin 81 mg restarted as per neurosurgery [facility] * Metoprolol/Cardizem for rate control * Heart rate trends 60s to 70s. * EKG 06/10 sinus rhythm * Monitor (8) CAD (coronary artery disease) Status: Chronic Response to Treatment: Stable Problem Text: * Metoprolol * Aspirin 81 mg (9) Allergic rhinitis Status: Chronic Response to Treatment: Stable Problem Text: * Continue Claritin (10) Anemia Status: Chronic Problem Text: * Hemoglobin stable * iron studies, B12, folate added to labs. * Stool OB pending. Plan/VTE VTE Prophylaxis Ordered?: Yes (SCD/TEDS) VTE Exclusion Pharmacological: Hemorrhage (ICH) VS, I&O, 24H, Fishbone Vital Signs/I&O Vital Signs Date Time Temp Pulse Resp B/P (MAP) Pulse Ox O2 Delivery O2 Flow Rate FiO2 06/17/16 08:54 60 130/70 06/17/16 08:50 Room Air 06/17/16 06:00 98.9 18 100 06/16/16 20:00 3.0 I&O- Last 24 Hours up to 6 AM 06/17/16 06:00 Intake Total 1140 ml Output Total 400 ml Balance 740 ml Katie Leija Jun 17, 2016 11:23
[2016-06-17 14:00] VITALS: BP 125/89
[2016-06-17 20:00] VITALS: BP 146/87
[2016-06-17] MEDS: LISINOPRIL 10 MG TAB PO SCH (20:23)
[2016-06-17] MEDS: traZODone 100 MG TAB PO SCH (20:24)
[2016-06-17] MEDS: SENNA 8.6 MG TAB (SENOKOT) PO SCH (21:00)
[2016-06-18 06:30] VITALS: BP 151/68
[2016-06-18] MEDS: ADVAIR DISKUS 250/50 INH PWD INH SCH ×2 (08:03→19:36)
[2016-06-18] MEDS: ROSUVASTATIN 10 MG TAB (CRESTOR) PO SCH (09:23)
[2016-06-18] MEDS: buPROPion **XL** TABLET 150MG (WELLBUTRIN XL) PO SCH (09:23)
[2016-06-18] MEDS: ASPIRIN 81 MG ENTERIC TAB PO SCH (09:23)
[2016-06-18] MEDS: levETIRAcetam 250MG TABLET (KEPPRA) PO SCH ×2 (09:24→21:30)
[2016-06-18] MEDS: OMEPRAZOLE 20 MG CAP PO SCH (09:24)
[2016-06-18] MEDS: METOPROLOL TARTRATE 100 MG TAB PO SCH ×2 (09:24→21:29)
[2016-06-18] MEDS: LORATADINE 10 MG TAB PO SCH (09:24)
[2016-06-18] MEDS: DOCUSATE SODIUM 100 MG CAP PO SCH ×2 (09:25→21:55)
[2016-06-18] MEDS: BACITRACIN OINT 30GM TOP SCH ×3 (09:25→21:00)
[2016-06-18] MEDS: NYSTATIN 100,000 UNITS/GM TOPICAL PWD 15 GM TOP SCH ×2 (09:26→21:00)
[2016-06-18 14:00] VITALS: BP 134/74
[2016-06-18 21:00] VITALS: BP 151/73
[2016-06-18] MEDS: SENNA 8.6 MG TAB (SENOKOT) PO SCH (21:00)
[2016-06-18] MEDS: traZODone 100 MG TAB PO SCH (21:28)
[2016-06-18] MEDS: LISINOPRIL 10 MG TAB PO SCH (21:33)
[2016-06-19 06:00] VITALS: BP 174/84
[2016-06-19] MEDS: ACETAMINOPHEN TAB 650MG DOSE (2X325MG) PO PRN ×2 (07:30→22:02)
[2016-06-19] MEDS: NYSTATIN 100,000 UNITS/GM TOPICAL PWD 15 GM TOP SCH ×2 (09:00→21:00)
[2016-06-19] MEDS: ROSUVASTATIN 10 MG TAB (CRESTOR) PO SCH (09:03)
[2016-06-19] MEDS: DOCUSATE SODIUM 100 MG CAP PO SCH ×3 (09:04→21:54)
[2016-06-19] MEDS: METOPROLOL TARTRATE 100 MG TAB PO SCH ×2 (09:04→21:53)
[2016-06-19] MEDS: OMEPRAZOLE 20 MG CAP PO SCH (09:04)
[2016-06-19] MEDS: levETIRAcetam 250MG TABLET (KEPPRA) PO SCH ×2 (09:04→21:55)
[2016-06-19] MEDS: ASPIRIN 81 MG ENTERIC TAB PO SCH (09:04)
[2016-06-19] MEDS: LORATADINE 10 MG TAB PO SCH (09:04)
[2016-06-19] MEDS: buPROPion **XL** TABLET 150MG (WELLBUTRIN XL) PO SCH (09:04)
[2016-06-19] MEDS: BACITRACIN OINT 30GM TOP SCH ×3 (09:05→21:57)
[2016-06-19] MEDS: ADVAIR DISKUS 250/50 INH PWD INH SCH ×2 (09:07→20:05)
[2016-06-19 14:00] VITALS: BP 140/78
[2016-06-19 20:00] VITALS: BP 140/75
[2016-06-19] MEDS: SENNA 8.6 MG TAB (SENOKOT) PO SCH (21:00)
[2016-06-19] MEDS: traZODone 100 MG TAB PO SCH (21:54)
[2016-06-19] MEDS: LISINOPRIL 10 MG TAB PO SCH (21:55)
[2016-06-20 06:00] VITALS: BP 144/74
[2016-06-20] MEDS: ADVAIR DISKUS 250/50 INH PWD INH SCH (08:20)
[2016-06-20] MEDS: levETIRAcetam 250MG TABLET (KEPPRA) PO SCH (08:22)
[2016-06-20] MEDS: DOCUSATE SODIUM 100 MG CAP PO SCH (08:22)
[2016-06-20] MEDS: buPROPion **XL** TABLET 150MG (WELLBUTRIN XL) PO SCH (08:22)
[2016-06-20] MEDS: ASPIRIN 81 MG ENTERIC TAB PO SCH (08:22)
[2016-06-20] MEDS: ROSUVASTATIN 10 MG TAB (CRESTOR) PO SCH (08:22)
[2016-06-20] MEDS: OMEPRAZOLE 20 MG CAP PO SCH (08:22)
[2016-06-20 08:23] VITALS: BP 144/74
[2016-06-20] MEDS: BACITRACIN OINT 30GM TOP SCH (08:23)
[2016-06-20] MEDS: LORATADINE 10 MG TAB PO SCH (08:23)
[2016-06-20] MEDS: METOPROLOL TARTRATE 100 MG TAB PO SCH (08:23)
[2016-06-20] MEDS: NYSTATIN 100,000 UNITS/GM TOPICAL PWD 15 GM TOP SCH (08:24)
[2016-06-20] MEDS ORDERED: LISI10TA4 PO (09:10)
--- NOTE | 2016-06-20 18:58 | PMRDS ---
DATE OF ADMISSION: 06/09/2016 DATE OF DISCHARGE: 06/20/2016 DISCHARGE DIAGNOSIS: Rehabilitation of right occipital parietal intracerebral hemorrhage status post drainage with right craniotomy. SECONDARY DIAGNOSES: 1. Seizure prophylaxis secondary to intracerebral hemorrhage. 2. Obesity. 3. Type 2 diabetes mellitus. 4. 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 5. Hypertension. 6. Depression/anxiety. HISTORY: Patient is a 55-year-old white female who had been recently ill with pneumonia and two days after arriving home, patient had marked alteration in attention, concentration and lethargy, mental status changes, vomiting, and severe headache. She was evaluated at an outside hospital ([facility]) and intubated, and then transferred to [facility] for neurosurgical evaluation and management. Because of her prior atrial fibrillation, patient had been on Xarelto. Patient was admitted to [facility] on 06/01/2016. She was on a ventilator and very cognitively depressed; however, transitioned back and started making improvements following the craniotomy. Patient had started into physical, occupational and speech therapy and [facility] was contacted regarding acute intensive rehabilitation of the intracerebral hemorrhage. Patient was felt to be appropriate for a trial of intensive mental rehabilitation, admitted here on 06/09/2016. Please see history and physical (H P) for more details. PROCEDURES PERFORMED: None. DIAGNOSTIC AND LABORATORY DATA: Showed stability of her mild anemia at hemoglobin and hematocrit (H H) of 10.8 and 35.3 on 06/10/2016 and then last check 06/15/2016 at 10.6 and 35.1, with some elevation of chloride while here after initially having an elevated carbon dioxide that normalized between 06/10/2016 to 417, chloride being 108, but normal BUN and creatinine with elevated fasting sugar on 06/10/2016. Her frequent diabetes check shows improving stability inside the target range for blood sugar management. Also, albuminemia of 2.9 with some reduction in iron and transferrin. HOSPITAL COURSE: Patient admitted on 06/09/2016 and started evaluation with physical, occupational and speech therapies. Patient likely motivated to work and participate well in therapy; however, her main deficits were left hemiparesis and impulsiveness. Overall, she has made tremendous improvement in her mobility ambulation. She has advanced her diet from thickened liquids to thin liquids, though we have continued her on pureed ground meat level. She has improved her ambulation markedly, now walking well over 100 feet, when initially only walking a few feet, and her transfers have markedly improved; however main concern for her safety remains impulsivity and prior to discharge, patient did a weekend in the rehabilitation unit apartments with her and things went well, indicating that patient, who has very good home support and will have some family member with her to supervise the patient and her impulsiveness, is able to be managed with their help. DISCHARGE MEDICATIONS: - Tylenol 650 mg every 6 hours as needed for pain or fever - Proventil inhaler two puffs every 6 hours as needed for shortness of breath - DuoNeb nebulizer 3 mL every 4 hours as needed for shortness of breath, wheezing. - enteric-coated aspirin 81 mg daily - Wellbutrin XL 300 mg every morning - Cardizem CD 120 mg nightly - Colace 100 mg twice a day - Keppra 750 mg by mouth twice a day - lisinopril has been reduced from prior 40 mg a day at bedtime to 30 mg at bedtime, as blood pressure has been well-controlled - loratadine by mouth daily - metoprolol tartrate 100 mg by mouth twice a day - milk of magnesia 30 mL daily as needed for constipation - nystatin powder to skin folds twice a day - omeprazole 20 mg by mouth daily - Crestor 40 mg by mouth daily - Advair inhaler 250/50 one puff twice a day - Senokot one tablet by mouth at bedtime - trazodone 300 mg by mouth daily COMPLICATIONS: None. DISCHARGE PLAN/INSTRUCTIONS: Patient is discharged home today, 06/20/2016 with family. She does need supervision at all times with two members of the family at home regularly. They report this can be accomplished. Also, they have additional family members who can substitute. Patient is to see her primary care with two weeks of discharge, Dr. Herber Aldrich, and [place] 2-3 [place]. Patient will be receiving home care for physical and occupational therapy. Adaptive equipment has been issued including commode, front buffing wheel presser and tub bench. Time spent on discharge is greater than 35 minutes.
== END 2016-06-20 13:05 | disposition home health service (06) | DRG 58 ==
LOC: M PM&R 12:50
PROVIDERS: ADMIT Physical Medicine & Rehabilitation; ATTEND Physical Medicine & Rehabilitation
DX: I69.154 Hemiplegia and hemiparesis following nontraumatic intracerebral hemorrhage affecting left non-dominant side (principal); I10 Essential (primary) hypertension; I48.0 Paroxysmal atrial fibrillation; F32.9 Major depressive disorder, single episode, unspecified; D64.9 Anemia, unspecified; E11.9 Type 2 diabetes mellitus without complications; J44.9 Chronic obstructive pulmonary disease, unspecified; E66.9 Obesity, unspecified; I69.291 Dysphagia following other nontraumatic intracranial hemorrhage; K21.9 Gastro-esophageal reflux disease without esophagitis; E78.5 Hyperlipidemia, unspecified; J30.9 Allergic rhinitis, unspecified; I25.10 Atherosclerotic heart disease of native coronary artery without angina pectoris; F41.9 Anxiety disorder, unspecified; Z79.82 Long term (current) use of aspirin; Z79.899 Other long term (current) drug therapy; Z87.891 Personal history of nicotine dependence; Z95.9 Presence of cardiac and vascular implant and graft, unspecified; Z82.49 Family history of ischemic heart disease and other diseases of the circulatory system; Z79.01 Long term (current) use of anticoagulants; Z88.1 Allergy status to other antibiotic agents